=== PATIENT | female | born 1940 | race Asian ===

== ENCOUNTER 2016-03-09 10:36 | Emergency (ER) | payer OTHER, MEDICARE ==
--- NOTE | 2016-03-09 11:06 | EDDOCDS ---
Physician Documentation [facility] Name: Alee Biggs Age: 75 yrs Sex: Female : 1940 Arrival Date: 03/09/2016 Time: 10:36 Bed Triage 2 Private MD: LEI Sam Disposition: 03/09/16 10:59 Discharged to Home/Self Care. Impression: Acute maxillary sinusitis, Cough. - Condition is Stable. - Discharge Instructions: Sinusitis, Adult, Cough, Adult. - Prescriptions for Zithromax Z- Kumar 250 mg Oral Tablet - take 1 tablet by ORAL route as directed for 5 days Day 1- take two tablets once. Day 2, 3, 4 , 5 take one tablet once daily.; 6 tablet. benzonatate 200 mg Oral Capsule - take 1 capsule by ORAL route 3 times per day As needed; 30 capsule. - Work Release Form - 3 day, Medication Reconciliation, Local Pharmacy Hours form. - Follow up: Emergency Department; When: As needed; Reason: Worsening of conditions. Follow up: LEI Sam; When: Call to arrange an appointment; Reason: Wound/Symptom Recheck, Recheck today's complaints, Worsening of conditions, Continuance of care. - Problem is an ongoing problem. - Symptoms are unchanged. - Notes: Follow up with your regular doctor for a recheck of your blood pressure. Historical: - Allergies: no known allergies; - Home Meds: 1. benazepril 40 mg oral tab twice a day (Last dose: 03/09/2016 09:00) 2. multivitamin Oral tab 1 tab daily (Last dose: 03/09/2016 09:00) 3. esomeprazole magnesium 20 mg Oral cpDR once daily (Last dose: 03/09/2016 09:00) 4. Oyster Shell Calcium With D Oral twice a day (Last dose: 03/09/2016 09:00) - PMHx: Hypertension; - PSHx: Hysterectomy; - Social history: Smoking status: Patient states was never smoker of tobacco. No barriers to communication noted, The patient speaks fluent [place], Speaks appropriately for age. - Family history: Not pertinent. - : The pt / caregiver states he / she is not on anticoagulants. Home medication list is obtained from the patient. - Exposure Risk Screening:: None identified. Vital Signs: 03/09 10:39 BP 178 / 91; Pulse 88; Resp 18; Temp 98.2(T); Pulse Ox 99% on R/A; Weight 54.43 kg / dem1 120 lbs; Height 5 ft. 0 in. (152.40 cm); Pain 05/12; 10:39 Body Mass Index 23.44 (54.43 kg, 152.40 cm) dem1 Signatures: Kianna Jimenez RN RN kr3 Seema Navas RN RN dsf London Alexander, PA-C PA-C cc10 MTDD
--- NOTE | 2016-03-09 11:06 | EDDOCDS ---
Nurse's Notes [facility] Name: Alee Biggs Age: 75 yrs Sex: Female : 1940 Arrival Date: 03/09/2016 Time: 10:36 Bed Triage 2 Private MD: LEI Sam Diagnosis: Acute maxillary sinusitis;Cough Presentation: 03/09 10:46 Presenting complaint: Patient states: coughing, sore throat, nasal discharge for the dsf past few days. Adult Sepsis Screening: The patient does not have new or worsening altered mentation. Patient's respiratory rate is less than 22. Systolic blood pressure is greater than 100. Patient has a qSOFA score of 0- Negative Sepsis Screen. Suicide/Homicide risk assessment- the patient denies having any suicidal and/or homicidal ideations and does not present with any other emotional, behavioral or mental health complaints. Status: The patient is a dependent. Transition of care: patient was not received from another setting of care. 10:46 Acuity: CASPER Level 5 dsf 10:46 Method Of Arrival: Walkin/Carried/Asstd dsf Triage Assessment: 10:48 General: Appears in no apparent distress, Behavior is appropriate for age, cooperative. dsf Pain: Location: head and throat Pain currently is 7 out of 10 on a pain scale. Neurological: Level of Consciousness is awake, alert, Reports headache. EENT: Reports pain in throat. Respiratory: Airway is patent Respiratory effort is even, unlabored, Respiratory pattern is regular, symmetrical, Reports cough that is non-productive. Derm: Skin is pink, warm & dry. Historical: - Allergies: no known allergies; - Home Meds: 1. benazepril 40 mg oral tab twice a day (Last dose: 03/09/2016 09:00) 2. multivitamin Oral tab 1 tab daily (Last dose: 03/09/2016 09:00) 3. esomeprazole magnesium 20 mg Oral cpDR once daily (Last dose: 03/09/2016 09:00) 4. Oyster Shell Calcium With D Oral twice a day (Last dose: 03/09/2016 09:00) - PMHx: Hypertension; - PSHx: Hysterectomy; - Social history: Smoking status: Patient states was never smoker of tobacco. No barriers to communication noted, The patient speaks fluent Romansh, Speaks appropriately for age. - Family history: Not pertinent. - : The pt / caregiver states he / she is not on anticoagulants. Home medication list is obtained from the patient. - Exposure Risk Screening:: None identified. Screenin:04 Screening information is obtained from the patient. Fall risk: No risks identified. kr3 Assistance ADL's: requires no assistance with activities of daily living. Abuse/DV Screen: The patient / caregiver reports he/she is: not in a situation that causes fear, pain or injury. Nutritional screening: No deficits noted. Advance Directives: Currently, there is no health care proxy. home support is adequate. Assessment: 11:05 Reassessment: Patient appears in no apparent distress at this time. kr3 Vital Signs: 10:39 BP 178 / 91; Pulse 88; Resp 18; Temp 98.2(T); Pulse Ox 99% on R/A; Weight 54.43 kg; dem1 Height 5 ft. 0 in. (152.40 cm); Pain 3/10; 10:39 Body Mass Index 23.44 (54.43 kg, 152.40 cm) [facility] Vitals: 10:39 Log In Time: March 09, 2016 at 10:37. dem1 ED Course: 10:38 Patient visited by Mukesh Reeves. dem1 10:38 THEA Sam is Private Physician. dem1 10:38 Patient moved to Waiting dem1 10:40 Patient moved to Pre RCE dem1 10:46 Triage Initiated dsf 10:47 London Alexander [facility] cc10 10:47 Reta Pretty MD is Attending Physician. cc10 10:48 Patient moved to Triage 2 dsf 10:53 Patient visited by London Alexander PA-C. cc10 10:53 Patient visited by London Alexander PA-C. cc10 10:59 LEI Sam is Referral Physician. cc10 11:05 The patient / caregiver is instructed regarding the plan of care and ED course. Patient kr3 has correct armband on for positive identification. 11:05 No IV's were initiated during this patient's visit. No procedures done that require kr3 assistance. Order Results: There are currently no results for this order. Outcome: 10:59 Discharge ordered by Provider. cc10 11:05 Discharge Assessment: patient administered narcotics - no. The following High Risk kr3 Discharge criteria are identified: None. Discharged to home ambulatory. Condition: stable. Discharge instructions given to patient, Instructed on discharge instructions, follow up and referral plans. medication usage, Demonstrated understanding of instructions, medications, Pt was receptive of discharge instructions/ teaching. Prescriptions given X 2. No special radiology studies were completed. Property sent home with patient. 11:05 Patient left the ED. kr3 Signatures: Kianna Jimenez RN RN kr3 Seema Navas RN RN dsf Mack, Demeishia dem1 London Alexander PA-C PA-C cc10 MTDD
--- NOTE | 2016-03-11 12:07 | EDDOCDS ---
Nurse's Notes [facility] Name: Alee Biggs Age: 75 yrs Sex: Female : 1940 Arrival Date: 03/09/2016 Time: 10:36 Bed Triage 2 Private MD: LEI Sam Diagnosis: Acute maxillary sinusitis;Cough Presentation: 03/09 10:46 Presenting complaint: Patient states: coughing, sore throat, nasal discharge for the dsf past few days. Adult Sepsis Screening: The patient does not have new or worsening altered mentation. Patient's respiratory rate is less than 22. Systolic blood pressure is greater than 100. Patient has a qSOFA score of 0- Negative Sepsis Screen. Suicide/Homicide risk assessment- the patient denies having any suicidal and/or homicidal ideations and does not present with any other emotional, behavioral or mental health complaints. Status: The patient is a dependent. Transition of care: patient was not received from another setting of care. 10:46 Acuity: CASPER Level 5 dsf 10:46 Method Of Arrival: Walkin/Carried/Asstd dsf Triage Assessment: 10:48 General: Appears in no apparent distress, Behavior is appropriate for age, cooperative. dsf Pain: Location: head and throat Pain currently is 7 out of 10 on a pain scale. Neurological: Level of Consciousness is awake, alert, Reports headache. EENT: Reports pain in throat. Respiratory: Airway is patent Respiratory effort is even, unlabored, Respiratory pattern is regular, symmetrical, Reports cough that is non-productive. Derm: Skin is pink, warm & dry. Historical: - Allergies: no known allergies; - Home Meds: 1. benazepril 40 mg oral tab twice a day (Last dose: 03/09/2016 09:00) 2. multivitamin Oral tab 1 tab daily (Last dose: 03/09/2016 09:00) 3. esomeprazole magnesium 20 mg Oral cpDR once daily (Last dose: 03/09/2016 09:00) 4. Oyster Shell Calcium With D Oral twice a day (Last dose: 03/09/2016 09:00) - PMHx: Hypertension; - PSHx: Hysterectomy; - Social history: Smoking status: Patient states was never smoker of tobacco. No barriers to communication noted, The patient speaks fluent Greenlandic, Speaks appropriately for age. - Family history: Not pertinent. - : The pt / caregiver states he / she is not on anticoagulants. Home medication list is obtained from the patient. - Exposure Risk Screening:: None identified. Screenin:04 Screening information is obtained from the patient. Fall risk: No risks identified. kr3 Assistance ADL's: requires no assistance with activities of daily living. Abuse/DV Screen: The patient / caregiver reports he/she is: not in a situation that causes fear, pain or injury. Nutritional screening: No deficits noted. Advance Directives: Currently, there is no health care proxy. home support is adequate. Assessment: 11:05 Reassessment: Patient appears in no apparent distress at this time. kr3 Vital Signs: 10:39 BP 178 / 91; Pulse 88; Resp 18; Temp 98.2(T); Pulse Ox 99% on R/A; Weight 54.43 kg; dem1 Height 5 ft. 0 in. (152.40 cm); Pain 3/10; 10:39 Body Mass Index 23.44 (54.43 kg, 152.40 cm) [facility] Vitals: 10:39 Log In Time: March 09, 2016 at 10:37. [facility] ED Course: 10:38 Patient visited by Mukesh Reeves. dem1 10:38 Cecy [facility] is Private Physician. dem1 10:38 Patient moved to Waiting dem1 10:40 Patient moved to Pre RCE dem1 10:46 Triage Initiated dsf 10:47 London Alexander PA-C is PHCP. cc10 10:47 Reta Pretty MD is Attending Physician. cc10 10:48 Patient moved to Triage 2 dsf 10:53 Patient visited by London Alexander PA-C. cc10 10:53 Patient visited by London Alexander PA-C. cc10 10:59 LEI Sam is Referral Physician. cc10 11:05 The patient / caregiver is instructed regarding the plan of care and ED course. Patient kr3 has correct armband on for positive identification. 11:05 No IV's were initiated during this patient's visit. No procedures done that require kr3 assistance. 11:11 [facility] Payment Agreement was scanned into [employer] and attached to record. jp5 03/10 07:09 T-Sheet-- Draft Copy was scanned into [employer] and attached to record. gb Order Results: There are currently no results for this order. Outcome: 03/09 10:59 Discharge ordered by Provider. cc10 11:05 Discharge Assessment: patient administered narcotics - no. The following High Risk kr3 Discharge criteria are identified: None. Discharged to home ambulatory. Condition: stable. Discharge instructions given to patient, Instructed on discharge instructions, follow up and referral plans. medication usage, Demonstrated understanding of instructions, medications, Pt was receptive of discharge instructions/ teaching. Prescriptions given X 2. No special radiology studies were completed. Property sent home with patient. 11:05 Patient left the ED. kr3 Signatures: Saskia Camacho, Reg Reg Kianna Vidal,RN RN kr3 Seema Navas,RN RN Mukesh Lopez1 London Alexander PA-C PADaylin cc10 Niya Jackson jp5 Chart Complete MTDHarleen
--- NOTE | 2016-03-11 12:07 | EDDOCDS ---
Physician Documentation [facility] Name: Alee Biggs Age: 75 yrs Sex: Female : 1940 Arrival Date: 03/09/2016 Time: 10:36 Bed Triage 2 Private MD: LEI Sam Disposition: 03/09/16 10:59 Discharged to Home/Self Care. Impression: Acute maxillary sinusitis, Cough. - Condition is Stable. - Discharge Instructions: Sinusitis, Adult, Cough, Adult. - Prescriptions for Zithromax Z- Kumar 250 mg Oral Tablet - take 1 tablet by ORAL route as directed for 5 days Day 1- take two tablets once. Day 2, 3, 4 , 5 take one tablet once daily.; 6 tablet. benzonatate 200 mg Oral Capsule - take 1 capsule by ORAL route 3 times per day As needed; 30 capsule. - Work Release Form - 3 day, Medication Reconciliation, Local Pharmacy Hours form. - Follow up: Emergency Department; When: As needed; Reason: Worsening of conditions. Follow up: LEI Sam; When: Call to arrange an appointment; Reason: Wound/Symptom Recheck, Recheck today's complaints, Worsening of conditions, Continuance of care. - Problem is an ongoing problem. - Symptoms are unchanged. - Notes: Follow up with your regular doctor for a recheck of your blood pressure. Historical: - Allergies: no known allergies; - Home Meds: 1. benazepril 40 mg oral tab twice a day (Last dose: 03/09/2016 09:00) 2. multivitamin Oral tab 1 tab daily (Last dose: 03/09/2016 09:00) 3. esomeprazole magnesium 20 mg Oral cpDR once daily (Last dose: 03/09/2016 09:00) 4. Oyster Shell Calcium With D Oral twice a day (Last dose: 03/09/2016 09:00) - PMHx: Hypertension; - PSHx: Hysterectomy; - Social history: Smoking status: Patient states was never smoker of tobacco. No barriers to communication noted, The patient speaks fluent Arabic, Speaks appropriately for age. - Family history: Not pertinent. - : The pt / caregiver states he / she is not on anticoagulants. Home medication list is obtained from the patient. - Exposure Risk Screening:: None identified. Vital Signs: 03/09 10:39 BP 178 / 91; Pulse 88; Resp 18; Temp 98.2(T); Pulse Ox 99% on R/A; Weight 54.43 kg / dem1 120 lbs; Height 5 ft. 0 in. (152.40 cm); Pain 3/10; 10:39 Body Mass Index 23.44 (54.43 kg, 152.40 cm) dem1 MDM: 11:11 [facility] Payment Agreement was scanned into [employer] and attached to record. jp5 11:11 Financial registration complete. jp5 03/10 07:09 T-Sheet-- Draft Copy was scanned into [employer] and attached to record. gb Signatures: Saskia Camacho, Kianna Cortez,RN RN kr3 Seema Navas RN RN jessief London Alexander, PA-C PA-C cc10 Niya Jackson jp5 The chart was reviewed and I authenticate all verbal orders and agree with the evaluation and treatment provided.Attachments: 03/09 11:11 [facility] Payment Agreement jp5 03/10 07:09 T-Sheet-- Draft Copy gb Chart Complete MTDD
--- NOTE | 2016-03-11 12:07 | EDDOCDS ---
Physician Documentation [facility] Name: Alee Biggs Age: 75 yrs Sex: Female : 1940 Arrival Date: 03/09/2016 Time: 10:36 Bed Triage 2 Private MD: LEI Sam Disposition: 03/09/16 10:59 Discharged to Home/Self Care. Impression: Acute maxillary sinusitis, Cough. - Condition is Stable. - Discharge Instructions: Sinusitis, Adult, Cough, Adult. - Prescriptions for Zithromax Z- Kumar 250 mg Oral Tablet - take 1 tablet by ORAL route as directed for 5 days Day 1- take two tablets once. Day 2, 3, 4 , 5 take one tablet once daily.; 6 tablet. benzonatate 200 mg Oral Capsule - take 1 capsule by ORAL route 3 times per day As needed; 30 capsule. - Work Release Form - 3 day, Medication Reconciliation, Local Pharmacy Hours form. - Follow up: Emergency Department; When: As needed; Reason: Worsening of conditions. Follow up: LEI Sam; When: Call to arrange an appointment; Reason: Wound/Symptom Recheck, Recheck today's complaints, Worsening of conditions, Continuance of care. - Problem is an ongoing problem. - Symptoms are unchanged. - Notes: Follow up with your regular doctor for a recheck of your blood pressure. Historical: - Allergies: no known allergies; - Home Meds: 1. benazepril 40 mg oral tab twice a day (Last dose: 03/09/2016 09:00) 2. multivitamin Oral tab 1 tab daily (Last dose: 03/09/2016 09:00) 3. esomeprazole magnesium 20 mg Oral cpDR once daily (Last dose: 03/09/2016 09:00) 4. Oyster Shell Calcium With D Oral twice a day (Last dose: 03/09/2016 09:00) - PMHx: Hypertension; - PSHx: Hysterectomy; - Social history: Smoking status: Patient states was never smoker of tobacco. No barriers to communication noted, The patient speaks fluent Turkish, Speaks appropriately for age. - Family history: Not pertinent. - : The pt / caregiver states he / she is not on anticoagulants. Home medication list is obtained from the patient. - Exposure Risk Screening:: None identified. Vital Signs: 03/09 10:39 BP 178 / 91; Pulse 88; Resp 18; Temp 98.2(T); Pulse Ox 99% on R/A; Weight 54.43 kg / dem1 120 lbs; Height 5 ft. 0 in. (152.40 cm); Pain 3/10; 10:39 Body Mass Index 23.44 (54.43 kg, 152.40 cm) dem1 MDM: 11:11 [facility] [place] Agreement was scanned into [employer] and attached to record. jp5 11:11 Financial registration complete. jp5 03/10 07:09 T-Sheet-- Draft Copy was scanned into [employer] and attached to record. gb Signatures: Saskia Camacho, Kianna Cortez,RN RN kr3 Seema Navas RN RN jessief London Alexander, PA-C PA-C cc10 Niya Jackson jp5 The chart was reviewed and I authenticate all verbal orders and agree with the evaluation and treatment provided.Attachments: 03/09 11:11 [facility] [place] Agreement jp5 03/10 07:09 T-Sheet-- Draft Copy gb Chart Complete MTDD
== END 2016-03-09 11:05 | disposition home or self-care (01) ==
LOC: M ED 10:36
DX: J01.90 Acute sinusitis, unspecified (principal); R05 Cough; I10 Essential (primary) hypertension; Z90.79 Acquired absence of other genital organ(s); Z79.899 Other long term (current) drug therapy

== ENCOUNTER 2016-11-11 14:59 | Emergency (ER) | payer OTHER, MEDICARE ==
[~2016-11-11] VITALS: Ht 154.9 cm; Wt 54.5 kg
[2016-11-11] MEDS ORDERED: BENA20TA PO (15:30)
[2016-11-11] MEDS ORDERED: HYDR25TA6 (15:30)
[2016-11-11] MEDS ORDERED: MULTTAB4 (15:30)
[2016-11-11] MEDS ORDERED: BIMA01SOL (15:30)
[2016-11-11] MEDS ORDERED: NEXI20CA (15:30)
[2016-11-11] MEDS ORDERED: OYST500T91 (15:30)
[2016-11-11 16:59] LABS: BASO % 0.4 % (0.0-1.0); EOS # 0.1 K/mm3 (0.0-0.50); EOS % 1.4 % (0.0-3.0); LARGE UNSTAINED CELL # 0.1 K/mm3 (0.0-0.4); LARGE UNSTAINED CELL % 2.7 % (0.0-4.0); LYMPH # 0.8 K/mm3 (1.5-4.5); LYMPH % 20.9 % (24.0-44.0); MEAN CORPUSCULAR HEMOGLOBIN 33.2 pg (27.0-33.0); MEAN CORPUSCULAR HGB CONC 33.8 g/dl (32.0-36.5); MEAN CORPUSCULAR VOLUME 98.3 fl (80.0-96.0); MONO # 0.2 K/mm3 (0.0-0.8); MONO % 5.5 % (0.0-5.0); NEUTROPHILS # 2.7 K/mm3 (1.8-7.7); PLATELET COUNT, AUTOMATED 127 k/mm3 (150-450); RED CELL DISTRIBUTION WIDTH 12.7 % (11.5-14.5); WHITE BLOOD COUNT 3.9 K/mm3 (4.0-10.0)
--- NOTE | 2016-11-11 17:16 | REP ---
Clinical: Pain, swelling and erythema. Technique: AP, lateral, bilateral oblique views of the right third digit. 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 Findings include joint space obliteration, subchondral heterogeneity and cystic changes along with marginal osteophytes and soft tissue swelling. No obvious acute fracture. No subcutaneous emphysema. Impression: Advanced osteoarthritic degenerative changes and overlying soft tissue swelling. Signed by Bethel Justice MD 11/11/2016 05:07 P
[2016-11-11 17:17] LABS: CALCIUM LEVEL 9.5 MG/DL (8.8-10.2); CREATININE FOR GFR 1.14 MG/DL (0.55-1.02); GLOMERULAR FILTRATION RATE 49.5 (>39); POTASSIUM SERUM 4.4 MEQ/L (3.5-5.1); URIC ACID 9.3 MG/DL (2.6-6.0)
[2016-11-11 17:24] LABS: ERYTHROCYTE SEDIMENTATION RATE 57 mm/hr (0-30)
[2016-11-11] MEDS ORDERED: INDO25CA PO (17:32)
[2016-11-11] MEDS ORDERED: AUGM875T28 PO (17:32)
[2016-11-11 17:42] VITALS: BP 150/88
== END 2016-11-11 17:43 | disposition home or self-care (01) ==
LOC: M ED 14:59
DX: M02.30 Reiter's disease, unspecified site (principal); M10.9 Gout, unspecified; M54.5 Low back pain; I10 Essential (primary) hypertension; K21.9 Gastro-esophageal reflux disease without esophagitis; Z79.899 Other long term (current) drug therapy

== ENCOUNTER 2017-05-12 13:45 | Emergency (ER) | payer OTHER, MEDICARE ==
[2017-05-12] MEDS: NORCO, ANEXSIA 5/325MG TABLET (HYDROcodone/ACETAMINOPHEN) PO (15:37)
== END 2017-05-12 17:41 | disposition home or self-care (01) ==
LOC: M ED 13:45
DX: S00.33XA Contusion of nose, initial encounter (principal); S20.219A Contusion of unspecified front wall of thorax, initial encounter; S76.011A Strain of muscle, fascia and tendon of right hip, initial encounter; W01.10XA Fall on same level from slipping, tripping and stumbling with subsequent striking against unspecified object, initial encounter; Y92.89 Other specified places as the place of occurrence of the external cause; Y93.9 Activity, unspecified; I10 Essential (primary) hypertension; K21.9 Gastro-esophageal reflux disease without esophagitis; M10.9 Gout, unspecified; K44.9 Diaphragmatic hernia without obstruction or gangrene; Z79.899 Other long term (current) drug therapy
CPT/HCPCS: 71111

== ENCOUNTER → 2017-07-06 | Outpatient (REF) | payer OTHER, MEDICARE ==
[2017-07-06 14:03] LABS: APPEARANCE, URINE HAZY (CLEAR); BACTERIA, URINE AUTO NEGATIVE (NEGATIVE); BILIRUBIN, URINE AUTO NEGATIVE (NEGATIVE); BLOOD, URINE BLOOD NEGATIVE (NEGATIVE); COLOR, URINE YELLOW (YELLOW); GLUCOSE, URINE (UA) AUTO NEGATIVE (NEGATIVE); KETONE, URINE AUTO NEGATIVE (NEGATIVE); LEUKOCYTE ESTERASE, URINE AUTO NEGATIVE (NEGATIVE); NITRITE, URINE AUTO NEGATIVE (NEGATIVE); PROTEIN, URINE AUTO NEGATIVE (NEGATIVE); RBC, URINE AUTO 0 /HPF (0-3); SPECIFIC GRAVITY URINE AUTO 1.014 (1.002-1.035); SQUAMOUS EPITHELIAL CELL UR AU 0 /HPF (0-6); UROBILINOGEN, URINE AUTO 0.2 mg/dL (0.0-2.0); WBC, URINE AUTO 0 /HPF (0-3)
== END ==
LOC: M SMT 13:36
DX: R32 Unspecified urinary incontinence (principal)

== ENCOUNTER 2017-11-23 19:19 | Emergency (ER) | payer MEDICARE, OTHER ==
[2017-11-23] MEDS: hydroCHLOROthiazide 12.5 MG CAPSULE PO ×3 (20:45)
[2017-11-23] MEDS: BENAZEPRIL 20 MG TAB PO ×3 (20:45)
[2017-11-23] MEDS: NAPROXEN 250 MG TAB PO ×3 (20:45)
[2017-11-23 20:58] LABS: HEMATOCRIT 36.7 % (36.0-47.0); HEMOGLOBIN 11.9 g/dl (12.0-15.5); MEAN CORPUSCULAR HEMOGLOBIN 32.2 pg (27.0-33.0); MEAN CORPUSCULAR HGB CONC 32.4 g/dl (32.0-36.5); MEAN CORPUSCULAR VOLUME 99.5 fl (80.0-96.0); PLATELET COUNT, AUTOMATED 117 10^3/uL (150-450); RED BLOOD COUNT 3.69 10^6/uL (4.00-5.40); RED CELL DISTRIBUTION WIDTH 12.9 % (11.5-14.5); WHITE BLOOD COUNT 4.2 10^3/uL (4.0-10.0)
[2017-11-23 21:46] LABS: ANION GAP 7 MEQ/L (8-16); BLOOD UREA NITROGEN 46 MG/DL (7-18); CARBON DIOXIDE LEVEL 28 MEQ/L (21-32); CHLORIDE LEVEL 107 MEQ/L (98-107); CPK CREATINE PHOSPHOKINASE 179 U/L (26-192); CREATININE FOR GFR 1.83 MG/DL (0.55-1.30); GLOMERULAR FILTRATION RATE 28.6 (>39); GLUCOSE, FASTING 94 MG/DL (70-100); MB/CK RELATIVE INDEX 2.51 (< OR =4); SODIUM LEVEL 142 MEQ/L (136-145); TROPONIN I < 0.02 NG/ML (< 0.10)
== END 2017-11-23 22:40 | disposition home or self-care (01) ==
LOC: M ED 19:19
DX: I44.0 Atrioventricular block, first degree (principal); J01.90 Acute sinusitis, unspecified; I10 Essential (primary) hypertension; I51.7 Cardiomegaly; K44.9 Diaphragmatic hernia without obstruction or gangrene; I27.20 Pulmonary hypertension, unspecified; M41.86 Other forms of scoliosis, lumbar region; Z79.899 Other long term (current) drug therapy
CPT/HCPCS: 71046

== ENCOUNTER 2017-12-12 16:17 | Inpatient (IN) | payer OTHER, MEDICARE ==
[2017-12-12] MEDS: ASPIRIN 81 MG CHEW TABLET PO (19:26)
[2017-12-12 19:45] LABS: BASO % 0.4 % (0.0-1.0); EOS % 0.9 % (0.0-3.0); HEMATOCRIT 38.5 % (36.0-47.0); HEMOGLOBIN 12.8 g/dl (12.0-15.5); IMMATURE GRANULOCYTE % 0.2 % (0-3.0); LYMPH # 1.8 10^3/uL (1.5-4.5); LYMPH % 37.8 % (24.0-44.0); MEAN CORPUSCULAR HEMOGLOBIN 32.8 pg (27.0-33.0); MEAN CORPUSCULAR HGB CONC 33.2 g/dl (32.0-36.5); MEAN CORPUSCULAR VOLUME 98.7 fl (80.0-96.0); MONO # 0.5 10^3/uL (0.0-0.8); MONO % 9.8 % (0.0-5.0); NEUTROPHILS # 2.4 10^3/uL (1.8-7.7); NEUTROPHILS % 50.9 % (36.0-66.0); PLATELET COUNT, AUTOMATED 142 10^3/uL (150-450); RED CELL DISTRIBUTION WIDTH 13.3 % (11.5-14.5); WHITE BLOOD COUNT 4.7 10^3/uL (4.0-10.0)
[2017-12-12 19:58] LABS: INR 0.92; PROTHROMBIN TIME 12.4 SECONDS (12.1-14.4)
[2017-12-12 20:32] LABS: ALBUMIN 3.9 GM/DL (3.2-5.2); ALBUMIN/GLOBULIN RATIO 0.93 (1.00-1.93); ALKALINE PHOSPHATASE 68 U/L (45-117); ALT/SGPT 16 U/L (12-78); ANION GAP 9 MEQ/L (8-16); AST/SGOT 41 U/L (7-37); BILIRUBIN,DIRECT 0.2 MG/DL (0.0-0.2); BILIRUBIN,TOTAL 0.8 MG/DL (0.2-1.0); BLOOD UREA NITROGEN 60 MG/DL (7-18); CALCIUM LEVEL 9.4 MG/DL (8.8-10.2); CARBON DIOXIDE LEVEL 27 MEQ/L (21-32); CHLORIDE LEVEL 104 MEQ/L (98-107); CPK CREATINE PHOSPHOKINASE 333 U/L (26-192); CREATININE FOR GFR 2.15 MG/DL (0.55-1.30); FREE T4 1.32 NG/DL (0.76-1.46); GLOMERULAR FILTRATION RATE 23.7 (>39); GLUCOSE, FASTING 92 MG/DL (70-100); LIPASE 320 U/L (73-393); MB/CK RELATIVE INDEX 1.74 (< OR =4); NT-PRO BNP 800 PG/ML (<450); POTASSIUM SERUM 4.2 MEQ/L (3.5-5.1); SODIUM LEVEL 140 MEQ/L (136-145); THYROID STIMULATING HORMONE 0.981 uIU/ML (0.358-3.740); TOTAL PROTEIN 8.1 GM/DL (6.4-8.2); TROPONIN I 0.02 NG/ML (< 0.10)
[2017-12-12] MEDS ORDERED: FLUTICASONE PROP 0.05% NASAL SPRAY 16 GM (FLONASE) (23:45)
[2017-12-13] MEDS: NS 1,000 ML IV ×3 (00:12→19:49)
[2017-12-13] MEDS: APIXABAN 2.5 MG TAB (ELIQUIS) PO ×3 (01:16→20:55)
[2017-12-13 02:04] LABS: TROPONIN I < 0.02 NG/ML (< 0.10)
[2017-12-13 06:26] LABS: HEMATOCRIT 31.6 % (36.0-47.0); MEAN CORPUSCULAR HEMOGLOBIN 32.6 pg (27.0-33.0); MEAN CORPUSCULAR HGB CONC 33.5 g/dl (32.0-36.5); MEAN CORPUSCULAR VOLUME 97.2 fl (80.0-96.0); PLATELET COUNT, AUTOMATED 119 10^3/uL (150-450); RED BLOOD COUNT 3.25 10^6/uL (4.00-5.40); RED CELL DISTRIBUTION WIDTH 13.1 % (11.5-14.5); WHITE BLOOD COUNT 3.3 10^3/uL (4.0-10.0)
[2017-12-13 06:44] LABS: ANION GAP 8 MEQ/L (8-16); BLOOD UREA NITROGEN 54 MG/DL (7-18); CALCIUM LEVEL 8.5 MG/DL (8.8-10.2); CARBON DIOXIDE LEVEL 26 MEQ/L (21-32); CHLORIDE LEVEL 109 MEQ/L (98-107); CREATININE FOR GFR 1.74 MG/DL (0.55-1.30); GLOMERULAR FILTRATION RATE 30.3 (>39); GLUCOSE, FASTING 82 MG/DL (70-100); SODIUM LEVEL 143 MEQ/L (136-145)
[2017-12-13 06:56] LABS: HEMOGLOBIN 10.6 g/dl (12.0-15.5)
[2017-12-13] MEDS: amLODIPine 5 MG TAB PO (09:50)
[2017-12-13] MEDS: PANTOPRAZOLE 40MG TAB (PROTONIX) PO (09:50)
[2017-12-13] MEDS: DEXTRAN/HYPROMELLOSE OPHTH SOLN 15 ML(GENTEAL TEARS) OU ×2 (17:09→20:55)
[2017-12-13] MEDS: LATANOPROST 0.005% OPHTH SOLN 2.5 ML OU (20:55)
[2017-12-14 05:59] LABS: HEMATOCRIT 31.3 % (36.0-47.0); HEMOGLOBIN 10.4 g/dl (12.0-15.5); MEAN CORPUSCULAR HEMOGLOBIN 32.7 pg (27.0-33.0); MEAN CORPUSCULAR HGB CONC 33.2 g/dl (32.0-36.5); MEAN CORPUSCULAR VOLUME 98.4 fl (80.0-96.0); PLATELET COUNT, AUTOMATED 114 10^3/uL (150-450); RED BLOOD COUNT 3.18 10^6/uL (4.00-5.40); RED CELL DISTRIBUTION WIDTH 13.1 % (11.5-14.5); WHITE BLOOD COUNT 3.3 10^3/uL (4.0-10.0)
[2017-12-14] MEDS: NS 1,000 ML IV (06:10)
[2017-12-14 06:25] LABS: ANION GAP 7 MEQ/L (8-16); BLOOD UREA NITROGEN 48 MG/DL (7-18); CARBON DIOXIDE LEVEL 26 MEQ/L (21-32); CHLORIDE LEVEL 112 MEQ/L (98-107); CREATININE FOR GFR 1.35 MG/DL (0.55-1.30); GLOMERULAR FILTRATION RATE 40.6 (>39); GLUCOSE, FASTING 87 MG/DL (70-100); POTASSIUM SERUM 4.1 MEQ/L (3.5-5.1); SODIUM LEVEL 145 MEQ/L (136-145)
[2017-12-14] MEDS: BENAZEPRIL 20 MG TAB PO (09:00)
[2017-12-14] MEDS: PANTOPRAZOLE 40MG TAB (PROTONIX) PO (09:01)
[2017-12-14] MEDS: APIXABAN 2.5 MG TAB (ELIQUIS) PO (09:01)
[2017-12-14] MEDS: DEXTRAN/HYPROMELLOSE OPHTH SOLN 15 ML(GENTEAL TEARS) OU ×3 (09:02→20:21)
[2017-12-14] MEDS: amLODIPine 5 MG TAB PO (09:02)
[2017-12-14 11:29] LABS: PROTHROMBIN TIME 13.3 SECONDS (12.1-14.4)
[2017-12-14] MEDS: ENOXAPARIN 100MG/1ML SYRINGE (J1650) SC (11:58)
[2017-12-14] MEDS ORDERED: PILL CRUSHER/CUTTER 1 EACH XX (12:30)
[2017-12-14] MEDS: SLF 3 ML SYR IV ×2 (13:32→20:23)
[2017-12-14] MEDS: WARFARIN SOD 5 MG TAB PO (16:23)
[2017-12-14] MEDS: LATANOPROST 0.005% OPHTH SOLN 2.5 ML OU (20:20)
[2017-12-15 05:28] LABS: INR 1.04; PROTHROMBIN TIME 13.7 SECONDS (12.1-14.4)
[2017-12-15] MEDS: SLF 3 ML SYR IV ×3 (06:00→21:31)
[2017-12-15 08:58] LABS: ANION GAP 8 MEQ/L (8-16); BLOOD UREA NITROGEN 39 MG/DL (7-18); CALCIUM LEVEL 8.7 MG/DL (8.8-10.2); CARBON DIOXIDE LEVEL 27 MEQ/L (21-32); CHLORIDE LEVEL 110 MEQ/L (98-107); CREATININE FOR GFR 1.26 MG/DL (0.55-1.30); GLUCOSE, FASTING 170 MG/DL (70-100); MAGNESIUM LEVEL 1.6 MG/DL (1.8-2.4); POTASSIUM SERUM 4.1 MEQ/L (3.5-5.1); SODIUM LEVEL 145 MEQ/L (136-145)
[2017-12-15] MEDS: amLODIPine 5 MG TAB PO ×2 (09:35→21:31)
[2017-12-15] MEDS: BENAZEPRIL 20 MG TAB PO (09:35)
[2017-12-15] MEDS: DEXTRAN/HYPROMELLOSE OPHTH SOLN 15 ML(GENTEAL TEARS) OU ×3 (09:35→21:31)
[2017-12-15] MEDS: PANTOPRAZOLE 20 MG TAB PO (11:17)
[2017-12-15] MEDS: ENOXAPARIN 100MG/1ML SYRINGE (J1650) SC (11:18)
[2017-12-15] MEDS: MAG SULF 1GM/100ML (MAG RUN) 1 GM in APPROPRIATE DILUENT 1 EA IV ×2 (16:23→17:21)
[2017-12-15] MEDS: WARFARIN SOD 7.5 MG TAB PO (17:21)
[2017-12-15] MEDS: LATANOPROST 0.005% OPHTH SOLN 2.5 ML OU (21:31)
[2017-12-16] MEDS: SLF 3 ML SYR IV ×4 (06:00→21:18)
[2017-12-16 06:06] LABS: INR 1.59; PROTHROMBIN TIME 19.2 SECONDS (12.1-14.4)
[2017-12-16 06:24] LABS: ANION GAP 5 MEQ/L (8-16); BLOOD UREA NITROGEN 33 MG/DL (7-18); CALCIUM LEVEL 7.9 MG/DL (8.8-10.2); CARBON DIOXIDE LEVEL 29 MEQ/L (21-32); CHLORIDE LEVEL 108 MEQ/L (98-107); CREATININE FOR GFR 1.06 MG/DL (0.55-1.30); GLOMERULAR FILTRATION RATE 53.7 (>39); GLUCOSE, FASTING 89 MG/DL (70-100); POTASSIUM SERUM 3.9 MEQ/L (3.5-5.1); SODIUM LEVEL 142 MEQ/L (136-145)
[2017-12-16] MEDS: BENAZEPRIL 20 MG TAB PO (08:43)
[2017-12-16] MEDS: amLODIPine 5 MG TAB PO ×2 (08:48→20:24)
[2017-12-16] MEDS: PANTOPRAZOLE 20 MG TAB PO (08:48)
[2017-12-16] MEDS: DEXTRAN/HYPROMELLOSE OPHTH SOLN 15 ML(GENTEAL TEARS) OU ×3 (08:52→20:24)
[2017-12-16 10:12] LABS: BASO % 0.5 % (0.0-1.0); EOS % 0.8 % (0.0-3.0); HEMATOCRIT 34.6 % (36.0-47.0); HEMOGLOBIN 11.5 g/dl (12.0-15.5); IMMATURE GRANULOCYTE % 0.3 % (0-3.0); LYMPH % 24.9 % (24.0-44.0); MEAN CORPUSCULAR HEMOGLOBIN 33.1 pg (27.0-33.0); MEAN CORPUSCULAR HGB CONC 33.2 g/dl (32.0-36.5); MEAN CORPUSCULAR VOLUME 99.7 fl (80.0-96.0); MONO # 0.6 10^3/uL (0.0-0.8); MONO % 14.4 % (0.0-5.0); NEUTROPHILS # 2.3 10^3/uL (1.8-7.7); NEUTROPHILS % 59.1 % (36.0-66.0); PLATELET COUNT, AUTOMATED 117 10^3/uL (150-450); RED BLOOD COUNT 3.47 10^6/uL (4.00-5.40); RED CELL DISTRIBUTION WIDTH 13.1 % (11.5-14.5); WHITE BLOOD COUNT 3.8 10^3/uL (4.0-10.0)
[2017-12-16] MEDS: SODIUM CHLORIDE NASAL 0.65% SPRAY BTL (OCEAN) ×3 (11:29→20:24)
[2017-12-16] MEDS: MOM 30ML SUSPENSION UDC PO (11:29)
[2017-12-16] MEDS: ENOXAPARIN 100MG/1ML SYRINGE (J1650) SC (11:30)
[2017-12-16] MEDS: SENOKOT S TAB PO (11:31)
[2017-12-16] MEDS: WARFARIN SOD 3 MG TAB PO (17:41)
[2017-12-16] MEDS: LATANOPROST 0.005% OPHTH SOLN 2.5 ML OU (20:25)
[2017-12-17 05:10] LABS: BASO % 0.5 % (0.0-1.0); EOS # 0.1 10^3/uL (0.0-0.50); HEMATOCRIT 33.2 % (36.0-47.0); IMMATURE GRANULOCYTE % 0.3 % (0-3.0); LYMPH % 25.8 % (24.0-44.0); MEAN CORPUSCULAR HEMOGLOBIN 32.8 pg (27.0-33.0); MEAN CORPUSCULAR HGB CONC 33.1 g/dl (32.0-36.5); MEAN CORPUSCULAR VOLUME 99.1 fl (80.0-96.0); MONO # 0.5 10^3/uL (0.0-0.8); MONO % 11.6 % (0.0-5.0); NEUTROPHILS # 2.4 10^3/uL (1.8-7.7); NEUTROPHILS % 59.8 % (36.0-66.0); PLATELET COUNT, AUTOMATED 117 10^3/uL (150-450); RED BLOOD COUNT 3.35 10^6/uL (4.00-5.40); RED CELL DISTRIBUTION WIDTH 13.1 % (11.5-14.5)
[2017-12-17 05:20] LABS: INR 2.41; PROTHROMBIN TIME 26.7 SECONDS (12.1-14.4)
[2017-12-17 05:26] LABS: ANION GAP 5 MEQ/L (8-16); BLOOD UREA NITROGEN 38 MG/DL (7-18); CALCIUM LEVEL 8.1 MG/DL (8.8-10.2); CARBON DIOXIDE LEVEL 30 MEQ/L (21-32); CHLORIDE LEVEL 109 MEQ/L (98-107); CREATININE FOR GFR 1.11 MG/DL (0.55-1.30); GLOMERULAR FILTRATION RATE 50.9 (>39); GLUCOSE, FASTING 91 MG/DL (70-100); MAGNESIUM LEVEL 2.1 MG/DL (1.8-2.4); SODIUM LEVEL 144 MEQ/L (136-145)
[2017-12-17] MEDS: SLF 3 ML SYR IV ×2 (06:00→14:00)
[2017-12-17] MEDS: DEXTRAN/HYPROMELLOSE OPHTH SOLN 15 ML(GENTEAL TEARS) OU ×2 (10:07→16:00)
[2017-12-17] MEDS: PANTOPRAZOLE 20 MG TAB PO (10:08)
[2017-12-17] MEDS: SODIUM CHLORIDE NASAL 0.65% SPRAY BTL (OCEAN) ×2 (10:08→16:00)
[2017-12-17] MEDS: amLODIPine 5 MG TAB PO (10:08)
[2017-12-17] MEDS: BENAZEPRIL 20 MG TAB PO (10:08)
[2017-12-17] MEDS: ENOXAPARIN 100MG/1ML SYRINGE (J1650) SC (11:41)
[2017-12-17] MEDS: WARFARIN SOD 3 MG TAB PO (16:59)
== END 2017-12-17 17:48 | disposition home or self-care (01) | DRG 309 ==
LOC: M ED 16:17 → M ED INP 22:19 → M PCU 23:52
DX: I48.92 Unspecified atrial flutter (principal); N17.9 Acute kidney failure, unspecified; R55 Syncope and collapse; I12.9 Hypertensive chronic kidney disease with stage 1 through stage 4 chronic kidney disease, or unspecified chronic kidney disease; K21.9 Gastro-esophageal reflux disease without esophagitis; E86.0 Dehydration; I49.5 Sick sinus syndrome; I35.0 Nonrheumatic aortic (valve) stenosis; K44.9 Diaphragmatic hernia without obstruction or gangrene; M10.9 Gout, unspecified; N18.3 Chronic kidney disease, stage 3 (moderate); Z79.899 Other long term (current) drug therapy; Z79.1 Long term (current) use of non-steroidal anti-inflammatories (NSAID)

== ENCOUNTER → 2017-12-19 | Outpatient (CLI) | payer OTHER, MEDICARE ==
[2017-12-19 15:18] LABS: INR 3.93; PROTHROMBIN TIME 39.4 SECONDS (12.1-14.4)
== END ==
LOC: M LAB 13:46
DX: Z51.81 Encounter for therapeutic drug level monitoring (principal); Z79.01 Long term (current) use of anticoagulants
CPT/HCPCS: 85610

== ENCOUNTER → 2017-12-19 | Outpatient (CLI) | payer MEDICARE, OTHER ==
[2017-12-19 15:30] LABS: HEMATOCRIT 36.2 % (36.0-47.0); HEMOGLOBIN 11.7 g/dl (12.0-15.5); MEAN CORPUSCULAR HEMOGLOBIN 32.7 pg (27.0-33.0); MEAN CORPUSCULAR HGB CONC 32.3 g/dl (32.0-36.5); MEAN CORPUSCULAR VOLUME 101.1 fl (80.0-96.0); PLATELET COUNT, AUTOMATED 149 10^3/uL (150-450); RED BLOOD COUNT 3.58 10^6/uL (4.00-5.40); RED CELL DISTRIBUTION WIDTH 12.9 % (11.5-14.5); WHITE BLOOD COUNT 4.2 10^3/uL (4.0-10.0)
[2017-12-19 16:03] LABS: ANION GAP 3 MEQ/L (8-16); BLOOD UREA NITROGEN 52 MG/DL (7-18); CALCIUM LEVEL 8.6 MG/DL (8.8-10.2); CARBON DIOXIDE LEVEL 32 MEQ/L (21-32); CHLORIDE LEVEL 108 MEQ/L (98-107); CREATININE FOR GFR 1.45 MG/DL (0.55-1.30); GLOMERULAR FILTRATION RATE 37.4 (>39); GLUCOSE, FASTING 110 MG/DL (70-100); POTASSIUM SERUM 4.4 MEQ/L (3.5-5.1); SODIUM LEVEL 143 MEQ/L (136-145)
== END ==
LOC: M LAB 15:00
DX: I65.23 Occlusion and stenosis of bilateral carotid arteries (principal)
CPT/HCPCS: 80048

== ENCOUNTER → 2017-12-28 | Outpatient (CLI) | payer MEDICARE, OTHER ==
[~2017-12-28] MED LIST: ISOVUE-370 76% 100ML VIAL (Q9967) As Ordered
== END ==
LOC: M RAD 13:56
DX: I65.23 Occlusion and stenosis of bilateral carotid arteries (principal); I67.2 Cerebral atherosclerosis; I67.1 Cerebral aneurysm, nonruptured
CPT/HCPCS: Q9967

== ENCOUNTER 2018-02-14 10:42 | Emergency (ER) | payer OTHER, MEDICARE | END 2018-02-14 11:41 | disposition home or self-care (01) | LOC: M ED 10:42 | DX: J01.90 Acute sinusitis, unspecified (principal); M41.9 Scoliosis, unspecified; R07.9 Chest pain, unspecified; N18.6 End stage renal disease; M54.9 Dorsalgia, unspecified; K44.9 Diaphragmatic hernia without obstruction or gangrene; K31.89 Other diseases of stomach and duodenum; I51.7 Cardiomegaly; Z79.899 Other long term (current) drug therapy | CPT/HCPCS: 71046 ==

== ENCOUNTER 2018-09-09 16:51 | Emergency (ER) | payer MEDICARE, OTHER ==
[~2018-09-09] VITALS: Ht 165.1 cm; Wt 94.5 kg
[~2018-09-09 16:51] MED LIST changes: +ALLO100T PO; +AMLO5TAB6 PO; +AMOX500C PO; +AUGM875T28 PO; +BENA20TA PO; +BIMA01SOL OU; +COUM1TAB19 PO; +FLON1SPR NARES; +FLUTISP; +HYDR-3715 PO; +HYDR25TA6; +HYDR25TAB PO; +INDO25CA PO; -ISOVUE-370 76% 100ML VIAL (Q9967) As Ordered; +MULTTAB4; +NAPR-837 PO; +NAPR-885 PO; +NEXI20CA PO; +OYST500T91 PO; +REFR0.5D8 OU
[2018-09-09] MEDS ORDERED: OMEP-218 PO (17:15)
[2018-09-09] MEDS ORDERED: HYDR25TAB PO (17:15)
[2018-09-09 17:34] LABS: BASO % 0.4 % (0.0-1.0); EOS # 0.1 10^3/uL (0.0-0.50); EOS % 1.3 % (0.0-3.0); HEMATOCRIT 38.2 % (36.0-47.0); HEMOGLOBIN 12.6 g/dl (12.0-15.5); LYMPH # 1.3 10^3/uL (1.5-4.5); LYMPH % 29.2 % (24.0-44.0); MEAN CORPUSCULAR HEMOGLOBIN 31.7 pg (27.0-33.0); MONO # 0.6 10^3/uL (0.0-0.8); MONO % 12.4 % (0.0-5.0); NEUTROPHILS # 2.6 10^3/uL (1.8-7.7); NEUTROPHILS % 56.7 % (36.0-66.0); PLATELET COUNT, AUTOMATED 153 10^3/uL (150-450); RED BLOOD COUNT 3.98 10^6/uL (4.00-5.40); WHITE BLOOD COUNT 4.5 10^3/uL (4.0-10.0)
[2018-09-09 17:48] LABS: INR 1.05; PROTHROMBIN TIME 13.4 SECONDS (11.8-14.0)
[2018-09-09] MEDS ORDERED: LABETALOL HCL 100 MG/20 ML VIAL IV STA (18:04)
[2018-09-09 18:11] LABS: ALBUMIN 3.1 GM/DL (3.2-5.2); ALT/SGPT 15 U/L (12-78); BILIRUBIN,TOTAL 1.2 MG/DL (0.2-1.0); BLOOD UREA NITROGEN 30 MG/DL (7-18); CARBON DIOXIDE LEVEL 27 MEQ/L (21-32); CHLORIDE LEVEL 102 MEQ/L (98-107); CK-MB VALUE MASS 1.5 NG/ML (<3.6); CPK CREATINE PHOSPHOKINASE 70 U/L (26-192); CREATININE FOR GFR 0.95 MG/DL (0.55-1.30); GLOMERULAR FILTRATION RATE > 60.0 (>39); GLUCOSE, FASTING 100 MG/DL (70-100); LIPASE 160 U/L (73-393); MB/CK RELATIVE INDEX 2.14 (< OR =4); POTASSIUM SERUM 3.6 MEQ/L (3.5-5.1); SODIUM LEVEL 139 MEQ/L (136-145); TOTAL PROTEIN 7.4 GM/DL (6.4-8.2); TROPONIN I < 0.02 NG/ML (< 0.10); URIC ACID 7.2 MG/DL (2.6-6.0)
[2018-09-09] MEDS ORDERED: hydroCHLOROthiazide 25 MG TAB PO ONE (18:15)
[2018-09-09] MEDS ORDERED: COLC1TAB13 PO ×2 (18:30→18:56)
--- NOTE | 2018-09-09 18:30 | REPVR ---
EXAM: CT Head Without Contrast EXAM DATE/TIME: 09/09/2018 6:04 PM CLINICAL HISTORY: 77 years old, female; Other: HTN emergency; Additional info: HTN emergency / R/O bleed TECHNIQUE: Imaging protocol: Axial computed tomography images of the head without contrast. Radiation optimization: All CT scans at this facility use at least one of these dose optimization techniques: automated exposure control; mA and/or kV adjustment per patient size (includes targeted exams where dose is matched to clinical indication); or iterative reconstruction. Other technique: STROKE PROTOCOL was implemented. COMPARISON: SC CT ANGIO HEAD 12/28/2017 2:28 PM FINDINGS: Brain: There is white matter lucency indicating chronic microvascular disease. There are old basal ganglia lacunar infarcts. There is no acute infarct. There is no hemorrhage or extra-axial collection. There is no mass. There is no cerebral edema. Ventricles: Normal. No ventriculomegaly. Bones/joints: Unremarkable. No acute fracture. Sinuses: Visualized sinuses are unremarkable. No fluid levels. Mastoid air cells: Visualized mastoid air cells are well aerated. No mastoid effusion. Soft tissues: Unremarkable. Vasculature: There are extensive carotid and vertebral artery calcifications. Other findings: Probable partially empty sella unchanged from prior scan. 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 No acute lesion or injury. No change from prior scan. ASSESSMENT: ASPECTS ([place] Stroke Program Early CT Score) is 10 Electronically signed by: Swapnil De Oliveira On 09/09/2018 18:29:52 PM
[2018-09-09] MEDS ORDERED: COLCHICINE 0.6 MG TAB PO ONE (19:00)
[2018-09-09] MEDS ORDERED: NORV5TAB PO (19:06)
[2018-09-09] MEDS ORDERED: LOSA50TA88 PO (19:06)
[2018-09-09] MEDS ORDERED: LOSARTAN 50 MG TAB PO ONE (19:15)
[2018-09-09] MEDS ORDERED: amLODIPine 5 MG TAB PO ONE (19:15)
[2018-09-09] MEDS ORDERED: cloNIDine 0.2 MG TAB PO ONE (21:45)
[2018-09-09 21:49] VITALS: BP 187/89
[2018-09-09 23:24] VITALS: BP 107/60
--- NOTE | 2018-09-09 23:53 | ECGEPIP ---
[facility] - ED Test Date: 2018-09-09 Pat Name: GLADYS LUIS Department: Room: - Gender: Female [employer]: CEZAR : 1940 Requested By: ISABEL Pepper Order Number: [id number] Reading MD: Yury Hardy Measurements Intervals [place] Rate: 73 P: ME: -1 QRS: 10 QRSD: 92 T: 71 QT: 421 QTc: 466 Interpretive Statements ATRIAL FIBRILLATION WITH ABERRANT CONDUCTION OR VENTRICULAR PREMATURE COMPLEXES Nonspecific ST-T wave abnormalities Similar to tracing done 12-12-17 Electronically Signed on 09-09-2018 23:53:04 EDT by Yury Hardy
--- NOTE | 2018-09-10 07:10 | REP ---
LEFT WRIST, FOUR VIEWS: Four views left wrist performed. No acute fracture is seen. There is disassociation of the scaphoid and lunate compatible with a scapholunate ligament tear. There is moderate narrowing of the radiocarpal joint with subchondral sclerosis. There are no erosive changes of gout. IMPRESSION: No acute fracture. 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 Degenerative changes as above. No erosive changes compatible with gout. Electronically Signed by Jonah Sands MD 09/11/2018 09:40 A
--- NOTE | 2018-09-10 07:11 | REP ---
CHEST, TWO VIEWS: Two views of the chest are performed and compared to prior study of 02/14/2018. Cardiomegaly is again noted. There is a large hiatal hernia. No new infiltrate is seen. Mediastinal silhouette is unchanged. Multiple sternal wires and a prosthetic heart valve are noted and are new since the prior study. IMPRESSION: Cardiomegaly. No acute infiltrate. New prosthetic heart valve. Electronically Signed by Jonah Sands MD 09/11/2018 09:40 A
== END 2018-09-09 23:34 | disposition home or self-care (01) ==
LOC: M ED 16:51 → EDBD 16:51 → M ED 23:34
DX: M10.032 Idiopathic gout, left wrist (principal); I10 Essential (primary) hypertension; I48.91 Unspecified atrial fibrillation; Z78.0 Asymptomatic menopausal state; Z79.899 Other long term (current) drug therapy; Z95.5 Presence of coronary angioplasty implant and graft

== ENCOUNTER 2018-12-23 17:49 | Inpatient (IN) | payer MEDICARE, OTHER ==
[~2018-12-23] VITALS: Ht 154.9 cm; Wt 56.0 kg
[~2018-12-23 17:49] MED LIST changes: +COLC1TAB13 PO; +INDO-16 PO; -INDO25CA PO; +LOSA50TA88 PO; +NORV5TAB PO; +OMEP-218 PO
[2018-12-23] MEDS ORDERED: VANI1CRE5 EX (18:26)
[2018-12-23] MEDS ORDERED: [UNRECOGNIZED DRUG - CODE] PO (18:26)
[2018-12-23] MEDS ORDERED: NEXI20CA PO (18:26)
[2018-12-23] MEDS ORDERED: METO1TAB87 PO ×2 (18:26→22:21)
[2018-12-23] MEDS ORDERED: ASPI81TA85 PO (18:26)
[2018-12-23] MEDS ORDERED: ACET1TAB55 PO (18:26)
[2018-12-23] MEDS ORDERED: BENA20TA PO (18:26)
[2018-12-23] MEDS ORDERED: KEFL500C17 PO (18:26)
[2018-12-23] MEDS ORDERED: TRIA1CR80 TOP (18:26)
[2018-12-23] MEDS ORDERED: IBUP-1022 PO (18:26)
[2018-12-23] MEDS ORDERED: NS 1,000 ML IV SCH (19:34)
[2018-12-23] MEDS ORDERED: METOPROLOL TART 25 MG TABLET PO ONE (19:45)
[2018-12-23] MEDS ORDERED: cefTRIAXone SOD 1 GM in D5W MINI-BAG PLUS 50 ML IV ONE (19:45)
[2018-12-23] MEDS ORDERED: ASPIRIN 81 MG CHEW TABLET PO ONE (19:45)
[2018-12-23] MEDS ORDERED: GI COCKTAIL 50ML BTL(HYOSCYAMINE/MAALOX/LIDOCAINE VISCOUS)(1:3:1) PO ONE (19:45)
[2018-12-23 20:08] LABS: BASO % 0.7 % (0.0-1.0); EOS # 0.1 10^3/uL (0.0-0.5); EOS % 1.4 % (0.0-3.0); HEMATOCRIT 41.7 % (36.0-47.0); HEMOGLOBIN 13.4 g/dl (12.0-15.5); LYMPH # 1.4 10^3/uL (1.5-5.0); LYMPH % 31.8 % (24.0-44.0); MEAN CORPUSCULAR HEMOGLOBIN 31.9 pg (27.0-33.0); MEAN CORPUSCULAR HGB CONC 32.1 g/dl (32.0-36.5); MEAN CORPUSCULAR VOLUME 99.3 fl (80.0-96.0); MONO # 0.5 10^3/uL (0.0-0.8); MONO % 11.6 % (0.0-5.0); NEUTROPHILS # 2.3 10^3/uL (1.5-8.5); NEUTROPHILS % 54.3 % (36.0-66.0); PLATELET COUNT, AUTOMATED 143 10^3/uL (150-450); WHITE BLOOD COUNT 4.2 10^3/uL (4.0-10.0)
[2018-12-23 20:18] LABS: INR 1.06; PROTHROMBIN TIME 13.5 SECONDS (11.8-14.0)
[2018-12-23 20:34] LABS: ALBUMIN 3.4 GM/DL (3.2-5.2); BILIRUBIN,DIRECT 0.2 MG/DL (0.0-0.2); BILIRUBIN,TOTAL 0.7 MG/DL (0.2-1.0); CALCIUM LEVEL 9.4 MG/DL (8.8-10.2); CK-MB VALUE MASS 2.8 NG/ML (<3.6); CREATININE FOR GFR 1.39 MG/DL (0.55-1.30); GLOMERULAR FILTRATION RATE 39.1 (>39); MB/CK RELATIVE INDEX 2.37 (< OR =4); POTASSIUM SERUM 3.7 MEQ/L (3.5-5.1); TROPONIN I 0.05 NG/ML (< 0.10)
[2018-12-23] MEDS ORDERED: ISOVUE-370 76% 100ML VIAL (Q9967) As Ordered ONE (20:38)
[2018-12-23] MEDS ORDERED: LABETALOL HCL 100 MG/20 ML VIAL IV STA ×2 (21:28→22:55)
--- NOTE | 2018-12-23 21:30 | REPVR ---
PROCEDURE INFORMATION: Exam: CT Angiography Chest With Contrast Exam date and time: 12/23/2018 8:57 PM Clinical history: 78 years old, female; Shortness of breath; Additional info: R/O pe TECHNIQUE: Imaging protocol: Computed tomographic angiography of the chest with intravenous contrast. 3D rendering: MIP reconstructed images were created and reviewed. Radiation optimization: All CT scans at this facility use at least one of these dose optimization techniques: automated exposure control; mA and/or kV adjustment per patient size (includes targeted exams where dose is matched to clinical indication); or iterative reconstruction. Contrast material: ISOVUE 370; Contrast volume: 75 ml; Contrast route: IV; COMPARISON: CR Chest, 2 view PA, Lat 09/09/2018 6:10 PM FINDINGS: Pulmonary arteries: The central pulmonary arteries are dilated. No central pulmonary embolism is seen. The subsegmental arteries in the left lower lobe are not well opacified, but it is unclear if this is secondary to inadequate contrast opacification. Pulmonary embolism in the left lower lobe cannot be excluded. No other pulmonary embolism is seen. Aorta: Unremarkable. No aortic aneurysm. No aortic dissection. Lungs: Mild hypoventilatory changes in the lungs. No airspace consolidation or masses. Pleural space: Unremarkable. No pneumothorax. No pleural effusion. Heart: The heart is enlarged. Advanced coronary artery atherosclerotic disease is present. Prior aortic valve replacement. Mediastinum: There is a large hiatal hernia. Lymph nodes: Unremarkable. No enlarged lymph nodes. Bones/joints: Prior sternotomy. Skeletal degenerative changes are noted. Soft tissues: Unremarkable. IMPRESSION: 1. Segmental pulmonary arteries in the left lower lobe are not well contrast opacified, but it is unclear if this is due to lower lobe pulmonary embolism versus artifact related to inadequate contrast opacification. Left lower lobe pulmonary embolism cannot be excluded. No other pulmonary embolism is seen. 2. Pulmonary artery enlargement suggesting pulmonary hypertension. 3. Cardiomegaly. 4. Coronary artery disease. 5. Large hiatal hernia. Electronically signed by: Jonathon Jon On 12/23/2018 21:29:50 PM
--- NOTE | 2018-12-23 21:31 | REPVR ---
PROCEDURE INFORMATION: Exam: US Duplex Left Lower Extremity Veins, Limited Exam date and time: 12/23/2018 8:53 PM Clinical history: 78 years old, female; Edema, localized; Lower extremity, left; Additional info: Swelling TECHNIQUE: Imaging protocol: Real-time Duplex ultrasound of the Left Lower Extremity with 2-D baron scale, color Doppler flow and spectral waveform analysis with image documentation. Limited exam focused on the left lower extremity veins. COMPARISON: No relevant prior studies available. FINDINGS: Left deep veins: Unremarkable. The common femoral, femoral, proximal profunda femoral and popliteal veins are patent without thrombus. Normal Doppler waveforms. Normal compressibility and/or augmentation response. Left superficial veins: Unremarkable. Saphenofemoral junction is patent without thrombus. Soft tissues: Unremarkable. IMPRESSION: No acute findings. No evidence of deep vein thrombosis. Electronically signed by: Jonathon Jon On 12/23/2018 21:31:08 PM
[2018-12-23] MEDS ORDERED: OMEP-218 PO (22:20)
[2018-12-23] MEDS ORDERED: ASPI-161 PO (22:20)
[2018-12-23] MEDS ORDERED: HYDR25TAB PO (22:23)
[2018-12-24] VITALS (7 sets, daily range): BP systolic 140–166; BP diastolic 78–90
[2018-12-24] MEDS ORDERED: ACETAMINOPHEN TAB 650MG DOSE (2X325MG) PO PRN (00:30)
[2018-12-24] MEDS ORDERED: POLYVINYL ALCOHOL OPHTH SOLN 15 ML(LIQUITEARS) OU PRN (01:00)
[2018-12-24] MEDS ORDERED: SLF 3 ML SYR IV PRN (03:00)
[2018-12-24] MEDS: LATANOPROST 0.005% OPHTH SOLN 2.5 ML OU SCH ×2 (03:15→21:15)
[2018-12-24] MEDS: HEPARIN SOD (PORCINE) 5000 UNITS/ML VIAL SC SCH ×3 (05:23→21:15)
[2018-12-24] MEDS: SLF 3 ML SYR IV SCH ×3 (05:33→21:16)
[2018-12-24] MEDS: ASPIRIN 81 MG ENTERIC TAB PO SCH (09:30)
[2018-12-24] MEDS: OMEPRAZOLE 20 MG CAP PO SCH (09:31)
[2018-12-24] MEDS: METOPROLOL TART 25 MG TABLET PO SCH ×2 (09:31→21:00)
[2018-12-24] MEDS: hydroCHLOROthiazide 25 MG TAB PO SCH (09:31)
--- NOTE | 2018-12-24 10:08 | ECGEPIP ---
[facility] - ED Test Date: 2018-12-23 Pat Name: GLADYS LUIS Department: Room: X1805-49 Gender: Female Creative Art Director: : [id number] Requested By: Raymundo Stevenson Order Number: [id number] Reading MD: Shauna Crouch Measurements Intervals [place] Rate: 71 P: AK: 0 QRS: 9 QRSD: 86 T: 52 QT: 406 QTc: 443 Interpretive Statements ATRIAL FIBRILLATION ABNORMAL RHYTHM ECG NSTTW abnormalities SIMILAR 09/09/18 Electronically Signed on 12-24-2018 10:08:26 EDT by Shauna Crouch
--- NOTE | 2018-12-24 10:40 | HPE ---
DATE OF ADMISSION: 12/24/2018 78-year-old woman with a history of coronary artery disease (CAD) status post stent, history of atrial flutter and atrial fibrillation, not on anticoagulation. Stasis dermatitis, history of lower extremity cellulitis, varicose veins, hypertension, who was recently diagnosed with cellulitis outpatient and started on Keflex twice daily who returned to urgent care because of right lower extremity pain. While in urgent care she was noted to be in atrial fibrillation and was sent to the emergency room. When she arrived in the emergency room, she was hemodynamically stable and noted to be in atrial fibrillation as per her baseline with no evidence of rapid ventricular rate. While in the emergency room, she reported left lower extremity pain and that her leg was swollen. Her exam was notable for excoriations and a lesion on the méndez of her left leg. She also had surrounding erythema and warmness to touch concerning for cellulitis. Initial vitals in the emergency room were notable for hypertension to systolic blood pressure 220 and diastolic 120. She was given labetalol with improvement of blood pressure to 142/68. Initial studies in the emergency room were notable for lower extremity Doppler ultrasound that was negative for deep vein thrombosis (DVT). She had a CTA/PE protocol that was negative for PE. She had an EKG that showed atrial fibrillation with normal rate. White count was 4.2, hemoglobin 13.4 with a hematocrit of 41.7 with platelets of 143. Her creatinine was noted to be 1.39. She was started on ceftriaxone. She received 1 gram of ceftriaxone while in the emergency room for presumed cellulitis and she is being admitted for cellulitis and hypertension. On meeting Ms. Biggs she reported that she has a history of lower extremity stasis dermatitis with chronic lower extremity edema bilaterally, she also has a history of pruritus of her legs and so she scratches them sometimes until she has excoriations and openings to her leg. She described that she has had periods of cellulitis prior and she was admitted a few years ago for right lower extremity cellulitis. She recently saw her outpatient provider her gave her Keflex twice daily that she had taken for a few days without improvement. Today she notes that her left lower extremity is quite painful. No drainage, just excoriations and a lesion that is on her central méndez of her left lower extremity. Review of systems was negative for any recent subjective fevers, chills, sweats. She has episodic shortness of breath but none sustained. No chest pain. No chest tightness. No palpitations. On asking her about anticoagulation for her baseline atrial fibrillation, she reports that she was once on Coumadin and it was stopped because she had profound epistaxis. Therefore she is not anticoagulated at this time. Review of systems is otherwise negative. PAST MEDICAL HISTORY: Notable for: Coronary artery disease (CAD) for which she has had one stent. A history of atrial flutter, ongoing, chronic atrial fibrillation. Stasis dermatitis. Varicose veins. Hypertension. REVIEW OF SYSTEMS: As noted above, her review of systems is negative for fever, chills, sweats, sustained shortness of breath, chest pain, palpitations, dizziness, hematuria, hematochezia, melena. Review of systems is positive for left lower extremity pain. It is also positive for bilateral lower extremity edema and bilateral lower extremity pruritus. The rest of the 12 point review of systems is negative. PHYSICAL EXAMINATION: GENERAL EXAM: She is a well appearing woman in no acute distress. She is alert and oriented times three. EYE EXAM: Her pupils are equal and reactive to light. She is anicteric. Her extraocular muscles are intact. ENT EXAM: She is atraumatic. She has moist mucous membranes. PULMONARY EXAM: She is clear to auscultation bilaterally. She has good air movement. No crackles or wheezing. HEART EXAM: She has a regular rate with an irregular rhythm. She has a pansystolic murmur heard throughout the precordium. ABDOMINAL EXAM: Soft, nontender. Her bowel sounds were normoactive. EXTREMITY EXAM: Notable for bilateral stasis dermatitis with skin changes and hyperpigmentation. Left lower extremity with excoriations with central linear long lesions with a width of about 2-3 mm and a length of about 4 cm. Warmth and redness around lesion. Without clear border because of hyperpigmentation. She has significant onychomycosis on the left lower extremity with atrophic great toenail, otherwise warm and well perfused with 2 DP pulses. NEUROLOGICAL EXAM: Shows normal speech. Normal strength in both upper extremities and lower extremities bilaterally with a normal tone. Cranial nerves are grossly intact and reflexes are 2+ at the patella. PSYCH EXAM: She is alert and oriented times three. ASSESSMENT: This is a 78-year-old woman with a history of stasis dermatitis and varicose veins and a history of cellulitis who is presenting to the emergency room with left lower extremity pain with evidence of extensive excoriations in the left lower extremity reporting persistent pruritus. Also notable for warmth, redness and open lesions in the left lower extremity concerning for cellulitis. At this time with no evidence of deep vein thrombosis (DVT). PLAN: 1. Left lower extremity cellulitis. Treat with ceftriaxone 2 grams every 24 hours. 2. Atrial fibrillation. Will continue metoprolol 25 twice a day. Will not start anticoagulation at this time given history of profound epistaxis on anticoagulation prior. Will however place on heparin subcu 5000 units every 8 hours. 3. History of glaucoma. Will continue latanoprost eye drops. 4. History of gastroesophageal reflux disease (GERD). Will continue omeprazole.
[2018-12-24] MEDS ORDERED: cefTRIAXone SOD 2 GM in D5W MINI-BAG PLUS 50 ML IV SCH (21:00)
[2018-12-25] VITALS: BP 152/82
[2018-12-25 04:00] VITALS: BP 142/76
[2018-12-25] MEDS: HEPARIN SOD (PORCINE) 5000 UNITS/ML VIAL SC SCH (05:01)
[2018-12-25] MEDS: SLF 3 ML SYR IV SCH (05:02)
[2018-12-25 05:42] LABS: HEMATOCRIT 36.5 % (36.0-47.0); HEMOGLOBIN 11.7 g/dl (12.0-15.5); MEAN CORPUSCULAR HEMOGLOBIN 31.5 pg (27.0-33.0); MEAN CORPUSCULAR HGB CONC 32.1 g/dl (32.0-36.5); MEAN CORPUSCULAR VOLUME 98.4 fl (80.0-96.0); PLATELET COUNT, AUTOMATED 117 10^3/uL (150-450); RED BLOOD COUNT 3.71 10^6/uL (4.00-5.40); WHITE BLOOD COUNT 3.6 10^3/uL (4.0-10.0)
[2018-12-25 06:05] LABS: CALCIUM LEVEL 8.4 MG/DL (8.8-10.2); CREATININE FOR GFR 1.1 MG/DL (0.55-1.30); GLOMERULAR FILTRATION RATE 51.3 (>39); MAGNESIUM LEVEL 1.5 MG/DL (1.8-2.4); POTASSIUM SERUM 3.8 MEQ/L (3.5-5.1)
[2018-12-25 08:00] VITALS: BP 180/76
[2018-12-25] MEDS: ASPIRIN 81 MG ENTERIC TAB PO SCH (08:30)
[2018-12-25] MEDS: METOPROLOL TART 25 MG TABLET PO SCH (08:30)
[2018-12-25] MEDS: OMEPRAZOLE 20 MG CAP PO SCH (08:30)
[2018-12-25] MEDS: hydroCHLOROthiazide 25 MG TAB PO SCH (08:30)
--- NOTE | 2018-12-25 11:22 | DS.PDOC ---
Discharge Summary General Date of Admission Dec 24, 2018 at 00:37 Date of Discharge 12/25/18 Discharge Summary Chief complaints Left lower extremity pain Final diagnosis Cellulitis Stasis dermatitis 78-year-old woman with a history of coronary artery disease (CAD) status post stent, history of atrial flutter and atrial fibrillation, not on anticoagulation because as per her, she had a massive epistasis and was told never to take and accommodation Stasis dermatitis, history of lower extremity cellulitis, varicose veins, hypertension, who was recently diagnosed with cellulitis outpatient and started on Keflex twice daily who returned to urgent care because of right lower extremity pain. While in urgent care she was noted to be in atrial fibrillation and was sent to the emergency room. When she arrived in the emergency room, she was hemodynamically stable and noted to be in atrial fibrillation as per her baseline with no evidence of rapid ventricular rate. While in the emergency room, she reported left lower extremity pain and that her leg was swollen. Her exam was notable for excoriations and a lesion on the méndez of her left leg. She also had surrounding erythema and warmness to touch concerning for cellulitis . Initial studies in the emergency room were notable for lower extremity Doppler ultrasound that was negative for deep vein thrombosis (DVT). She had a CTA/PE protocol that was negative for PE, though it was indeterminate, but the patient has no complaints of shortness of breath or any tachycardia. In any case, the risks and benefits of an echo, which were discussed with her again. She states that s She was started on ceftriaxone. She received 1 gram of ceftriaxone while in the emergency room for presumed cellulitis and she is being admitted for cellulitis and hypertension. No drainage, just excoriations and a lesion that is on her central méndez of her left lower extremity. We'll discharge on oral antibiotics, Augmentin for 3 more days. PHYSICAL EXAMINATION: GENERAL EXAM: She is a well appearing woman in no acute distress. She is alert and oriented times three. EYE EXAM: Her pupils are equal and reactive to light. She is anicteric. Her extraocular muscles are intact. ENT EXAM: She is atraumatic. She has moist mucous membranes. PULMONARY EXAM: She is clear to auscultation bilaterally. She has good air movement. No crackles or wheezing. HEART EXAM: She has a regular rate with an irregular rhythm. She has a pansystolic murmur heard throughout the precordium. ABDOMINAL EXAM: Soft, nontender. Her bowel sounds were normoactive. EXTREMITY EXAM: Notable for bilateral stasis dermatitis with skin changes and hyperpigmentation. Left lower extremity with excoriations with central linear long lesions with a width of about 2-3 mm and a length of about 4 cm. no warmth and redness around lesion. Without clear border because of hyperpigmentation. She has significant onychomycosis on the left lower extremity with atrophic great toenail, otherwise warm and well perfused with 2 DP pulses. NEUROLOGICAL EXAM: Shows normal speech. Normal strength in both upper extremities and lower extremities bilaterally with a normal tone. Cranial nerves are grossly intact and reflexes are 2+ at the patella. PSYCH EXAM: She is alert and oriented times three. Medications. As per discharge reconciliation medication list Activity as tolerated Diet. 2 g sodium diet Follow-up appointments. PCP in 1 week , cardiology as per her scheduled arun ointment Condition on discharge. Patient is medically optimized for discharge Discharge disposition: Home Total time spent on this discharge including coordination of care, review of chart documentation and actual contact is around 35 minutes Vital Signs/I&Os Vital Signs Date Time Temp Pulse Resp B/P (MAP) Pulse Ox O2 Delivery O2 Flow Rate FiO2 12/25/18 08:00 98.3 73 18 180/76 (110) 98 Room Air I&O- Last 24 Hours up to 6 AM 12/25/18 06:00 Intake Total 720 ml Output Total 975 ml Balance -255 ml Laboratory Data Labs 24H Laboratory Tests 2 12/25/18 05:17: Nucleated Red Blood Cells % (auto) 0.0, Anion Gap 7L, Glomerular Filtration Rate 51.3, Lactic Acid Level 1.2, Calcium Level 8.4L, Magnesium Level 1.5L CBC/BMP Laboratory Tests 12/25/18 05:17 Microbiology Microbiology 12/23/18 Blood Culture - Preliminary, Resulted No growth after 24 hours . All specim... 12/23/18 Blood Culture - Preliminary, Resulted No growth after 24 hours . All specim... Discharge Medications Scheduled Aspirin (Aspirin EC) 81 Mg Tablet.dr, 81 MG PO DAILY, (Reported) Bimatoprost (Lumigan) 50 Drop/2.5 Ml Eli, 1 DROP OU QHS, (Reported) Calcium Carbonate/Vitamin D3 (Calcium 500-Vit D3 200 Tablet) 1 Tab Tab, 1 TAB PO DAILY, (Reported) Hydrochlorothiazide (Hydrochlorothiazide) 25 Mg Tablet, 25 MG PO DAILY, (Reported) Metoprolol Tartrate (Metoprolol Tartrate) 25 Mg Tablet, 25 MG PO BID, (Reported) Omeprazole (Omeprazole) 20 Mg Capsule.dr, 20 MG PO DAILY, (Reported) Scheduled PRN Carboxymethylcellulose Sodium (Refresh Tears) 0.5 % Mario, 1 DROP OU QID PRN for DRY EYES, (Reported) Allergies Coded Allergies: No Known Allergies (Verified Allergy, Unknown, 09/09/18) MAL ROLLINS MD Dec 25, 2018 11:22
[2018-12-25] MEDS ORDERED: AUGM875T28 PO (11:25)
== END 2018-12-25 13:32 | disposition home or self-care (01) | DRG 603 ==
LOC: M ED 17:49 → M ED INP 12-24 00:37 → M PCU 12-24 01:49
PROVIDERS: ADMIT Internal Medicine; ATTEND Internal Medicine
DX: L03.116 Cellulitis of left lower limb (principal); I48.92 Unspecified atrial flutter; Z95.5 Presence of coronary angioplasty implant and graft; I25.10 Atherosclerotic heart disease of native coronary artery without angina pectoris; I48.91 Unspecified atrial fibrillation; I10 Essential (primary) hypertension; H40.9 Unspecified glaucoma; K21.9 Gastro-esophageal reflux disease without esophagitis; I87.2 Venous insufficiency (chronic) (peripheral); I86.8 Varicose veins of other specified sites; L29.9 Pruritus, unspecified; Z79.899 Other long term (current) drug therapy; Z79.82 Long term (current) use of aspirin

== ENCOUNTER → 2019-02-06 | Outpatient (CLI) | payer MEDICARE, OTHER ==
[~2019-02-06] MED LIST changes: +ACET1TAB55 PO; +ASPI-161 PO; +ASPI81TA85 PO; +IBUP-1022 PO; +ISOVUE-370 76% 100ML VIAL (Q9967) As Ordered ONE; +KEFL500C17 PO; +METO1TAB87 PO; +TRIA1CR80 TOP; +VANI1CRE5 EX; +[UNRECOGNIZED DRUG - CODE] PO
--- NOTE | 2019-02-06 09:47 | REP ---
CAROTID ULTRASOUND: Real-time ultrasound evaluation and duplex Doppler interrogation of the extracranial carotid vasculature is performed. There is mild plaquing and narrowing in both carotid bulbs extending into the internal and external carotid arteries. Luminal narrowing is less than 50%. There is no evidence of hemodynamically significant stenosis of either internal carotid artery. Normal flow velocities are seen. The vertebral arteries demonstrate normal direction of flow. RIGHT LEFT Peak systolic velocity ICA 45.9 cm/s 48.3 cm/s End diastolic velocity ICA 11.4 cm/s 19.8 cm/s Peak systolic velocity CCA 56.2 cm/s 65.1 cm/s Peak systolic velocity ECA 60.8 cm/s 53.2 cm/s ICA/CCA ratio 0.82 0.74 IMPRESSION: Bilateral luminal narrowing of the internal carotid arteries less than 50%. No evidence of hemodynamically significant stenosis. Electronically Signed by Jonah Sands MD 02/06/2019 09:38 A
--- NOTE | 2019-02-06 11:26 | REP ---
Intra and extracranial CTA is: 02/06/2019. Indication: Stroke. Comparison: 12/28/2017. Technique: High resolution axial CT images of the intra and extracranial circulations were performed following IV administration of 75 ml Isovue 370. Findings: There is no intracranial vessel occlusion. No intracranial AVM is detected. 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 Intracranial atherosclerotic disease is redemonstrated most pronounced involving the right supraclinoid and V4 segments. There is no hemodynamically significant extracranial ICA stenosis by NASCET criteria. Mild to moderate atherosclerotic narrowing of the proximal ICAs is present bilaterally, more pronounced on the right. The great vessel origins are unremarkable. There is moderate atherosclerotic right vertebral origin stenosis. The left vertebral artery is dominant. Impression: Intracranial atherosclerotic disease with the greatest degree of stenosis involving the right supraclinoid ICA and right V4 segments. No vessel occlusion. Stable right A1/A2 junction aneurysm new. No hemodynamically significant extracranial ICA stenosis by NASCET criteria. Electronically Signed by Brendan Brewer DO 02/06/2019 11:17 A
== END ==
LOC: M RAD 07:45
PROVIDERS: ATTEND Physician Assistant
DX: I65.23 Occlusion and stenosis of bilateral carotid arteries (principal)
CPT/HCPCS: 70496; 70498; 93880; Q9967

== ENCOUNTER → 2019-02-18 | Outpatient (CLI) | payer MEDICARE, OTHER ==
[~2019-02-18] MED LIST changes: +ASPI-255 PO; +ATOR1TAB21 PO; +BENA20TA8 PO; +D3 22000 PO; -ISOVUE-370 76% 100ML VIAL (Q9967) As Ordered ONE; +MAG400TA PO
--- NOTE | 2019-02-18 12:33 | REP ---
COMPLETE ABDOMINAL SONOGRAPHY: HISTORY: Measure spleen. Comparison CT study, January 05, 2016. FINDINGS: Scanning through the right upper quadrant of the abdomen demonstrates a normal sized, thin-walled gallbladder without evidence of stone or polyp. The common bile duct measures 0.8 cm in greatest diameter, mildly prominent. No pancreatic abnormality is seen. Calcification in the pancreatic artery is noted. There is a hyperechoic area in the liver 1 cm in diameter corresponding with the calcification seen in this portion of the liver on CT study. This is felt to be a granuloma. No liver mass lesion is seen. Spleen is normal in size measuring 8.7 x 8.1 x 3.1 cm, and homogeneous in texture. There is no evidence of ascites. Renal cortical echogenicity pattern is normal and contours are smooth. Right kidney measures 8.5 x 3.1 x 3.4 cm. Left renal dimensions are 9.6 x 4.0 x 3.6 cm. No hydronephrosis is seen on either side. There is a 0.8 cm cyst in the upper to mid pole laterally on the right. There is a 1.7 cm cyst in mid pole position on the left. IMPRESSION: Normal size spleen. Granulomatous calcification in the liver. Vascular calcifications noted in the splenic artery. There is a small cyst in each kidney. Electronically Signed by Asher Farley MD 02/18/2019 03:31 P
== END ==
LOC: M RAD 07:42
PROVIDERS: ATTEND Internal Medicine Hematology
DX: D64.9 Anemia, unspecified (principal)

== ENCOUNTER 2020-09-09 13:21 | Observation (INO) | payer MEDICARE, OTHER ==
[~2020-09-09] VITALS: Ht 154.9 cm; Wt 50.7 kg
[~2020-09-09 13:21] MED LIST changes: +AMLO1TAB24 PO; -AMLO5TAB6 PO; -ASPI81TA85 PO; +ASPI81TA86 PO; +BENA-8 PO; -BENA20TA8 PO; +COLC0.6T47 PO; -COLC1TAB13 PO; +HYDR-3490 PO; -HYDR25TAB PO; +LOSA50TA28 PO; -LOSA50TA88 PO; -MAG400TA PO; +MAGN400T35 PO; +MULT1TAB74; -MULTTAB4; +OMEP-173 PO; -OMEP-218 PO; +PRED50TA PO
[2020-09-09 14:09] LABS: BASO % 0.6 % (0.0-1.0); EOS # 0.1 10^3/uL (0.0-0.5); HEMATOCRIT 43.7 % (36.0-47.0); LYMPH # 1.1 10^3/uL (1.5-5.0); LYMPH % 21.3 % (24.0-44.0); MEAN CORPUSCULAR HEMOGLOBIN 32.3 pg (27.0-33.0); MEAN CORPUSCULAR VOLUME 100.9 fl (80.0-96.0); MONO # 0.4 10^3/uL (0.0-0.8); MONO % 8.4 % (2.0-8.0); NEUTROPHILS # 3.6 10^3/uL (1.5-8.5); NEUTROPHILS % 68.3 % (36.0-66.0); PLATELET COUNT, AUTOMATED 119 10^3/uL (150-450); RED BLOOD COUNT 4.33 10^6/uL (4.00-5.40); WHITE BLOOD COUNT 5.3 10^3/uL (4.0-10.0)
[2020-09-09 14:47] LABS: BLOOD UREA NITROGEN 41 MG/DL (7-18); CALCIUM LEVEL 9.4 MG/DL (8.8-10.2); CARBON DIOXIDE LEVEL 28 MEQ/L (21-32); CHLORIDE LEVEL 105 MEQ/L (98-107); CK-MB VALUE MASS 1.6 NG/ML (<3.6); CPK CREATINE PHOSPHOKINASE 128 U/L (26-192); CREATININE FOR GFR 1.47 MG/DL (0.55-1.30); GLOMERULAR FILTRATION RATE 36.6 (>39); GLUCOSE, FASTING 166 MG/DL (70-100); MAGNESIUM LEVEL 1.8 MG/DL (1.8-2.4); MB/CK RELATIVE INDEX 1.25 (< OR =4); POTASSIUM SERUM 4.1 MEQ/L (3.5-5.1); SODIUM LEVEL 142 MEQ/L (136-145); TROPONIN I < 0.02 NG/ML (< 0.10)
[2020-09-09] MEDS ORDERED: NS 500 ML IV ONE (15:10)
[2020-09-09] MEDS ORDERED: ISOVUE-370 76% 100ML VIAL As Ordered ONE (15:10)
[2020-09-09] MEDS ORDERED: ACETAMINOPHEN TAB 650MG DOSE (2X325MG) PO PRN (16:35)
[2020-09-09] MEDS ORDERED: MAALOX 30 ML SUSP *UDC PO PRN (16:35)
[2020-09-09] MEDS ORDERED: MOM 30ML SUSPENSION UDC PO PRN (16:35)
[2020-09-09] MEDS ORDERED: ASPI-161 PO (16:46)
[2020-09-09] MEDS ORDERED: FLUTISP NARES (16:46)
[2020-09-09] MEDS ORDERED: ALLO300T2 PO (16:46)
[2020-09-09] MEDS ORDERED: OYST500T12 PO (16:46)
[2020-09-09] MEDS ORDERED: VANI1CRE5 TOP (16:46)
[2020-09-09] MEDS ORDERED: LORA-674 PO (16:46)
[2020-09-09] MEDS ORDERED: PATIENT COMMENT (16:48)
[2020-09-09] MEDS ORDERED: HOME MED LIST COMPLETE! XX SCH (16:50)
[2020-09-09] MEDS ORDERED: VANICREAM MOISTURIZING SKIN CREAM 113GM TUBE TOP PRN (17:10)
[2020-09-09] MEDS ORDERED: FLUTICASONE PROP 0.05% NASAL SPRAY 16 GM (FLONASE) NARES PRN (17:10)
[2020-09-09 17:43] LABS: RSV AMPLIFICATION NEGATIVE (NEGATIVE)
[2020-09-09] MEDS: HEPARIN SOD (PORCINE) 5000UNITS/ML 1ML VIAL/SYRINGE SC SCH (21:00)
[2020-09-09 23:17] VITALS: BP 145/82
[2020-09-09 23:30] VITALS: BP_SYST 145; BP_SYST 146; BP_SYST 161; BP_DIAS 81; BP_DIAS 82; BP_DIAS 97
[2020-09-10 06:00] VITALS: BP 139/80
[2020-09-10 06:22] LABS: HEMATOCRIT 40.7 % (36.0-47.0); HEMOGLOBIN 13.3 g/dl (12.0-15.5); MEAN CORPUSCULAR HEMOGLOBIN 32.8 pg (27.0-33.0); MEAN CORPUSCULAR HGB CONC 32.7 g/dl (32.0-36.5); MEAN CORPUSCULAR VOLUME 100.5 fl (80.0-96.0); PLATELET COUNT, AUTOMATED 117 10^3/uL (150-450); RED BLOOD COUNT 4.05 10^6/uL (4.00-5.40); WHITE BLOOD COUNT 4.7 10^3/uL (4.0-10.0)
[2020-09-10 06:49] LABS: ALBUMIN 3.3 GM/DL (3.2-5.2); CALCIUM LEVEL 8.5 MG/DL (8.8-10.2); CREATININE FOR GFR 1.32 MG/DL (0.55-1.30); GLOMERULAR FILTRATION RATE 41.4 (>39); POTASSIUM SERUM 3.8 MEQ/L (3.5-5.1); TOTAL PROTEIN 6.7 GM/DL (6.4-8.2)
[2020-09-10 09:00] VITALS: BP 100/72
[2020-09-10] MEDS ORDERED: OMEPRAZOLE 20MG CAP PO SCH (09:00)
[2020-09-10] MEDS ORDERED: CALCIUM/VITAMIN D 500 MG TAB PO SCH (09:00)
[2020-09-10] MEDS ORDERED: LORATADINE 10 MG TAB PO SCH (09:00)
[2020-09-10] MEDS ORDERED: ATORVASTATIN 20 MG TAB PO SCH (09:00)
[2020-09-10] MEDS ORDERED: BENAZEPRIL 20 MG TAB PO SCH (09:00)
[2020-09-10] MEDS ORDERED: ASPIRIN 81MG ENTERIC TABLET PO SCH (09:00)
[2020-09-10] MEDS ORDERED: MAGNESIUM OXIDE 400MG TAB (MAG-OX) PO SCH (09:00)
[2020-09-10] MEDS ORDERED: allopurinoL 300 MG TAB PO SCH (09:00)
[2020-09-10] MEDS: HEPARIN SOD (PORCINE) 5000UNITS/ML 1ML VIAL/SYRINGE SC SCH (09:10)
[2020-09-10 09:30] VITALS: BP_SYST 100; BP_SYST 108; BP_DIAS 63; BP_DIAS 72
== END 2020-09-10 14:24 | disposition home or self-care (01) ==
LOC: M ED 13:21 → M ED INP 13:22 → ENRESERV 20:03 → M MSPAV 23:15
PROVIDERS: ADMIT Family Medicine; ATTEND Family Medicine
DX: R55 Syncope and collapse (principal); I48.91 Unspecified atrial fibrillation; I12.9 Hypertensive chronic kidney disease with stage 1 through stage 4 chronic kidney disease, or unspecified chronic kidney disease; I35.2 Nonrheumatic aortic (valve) stenosis with insufficiency; Z95.2 Presence of prosthetic heart valve; I25.10 Atherosclerotic heart disease of native coronary artery without angina pectoris; E78.5 Hyperlipidemia, unspecified; M10.9 Gout, unspecified; H40.9 Unspecified glaucoma; N18.9 Chronic kidney disease, unspecified; K21.9 Gastro-esophageal reflux disease without esophagitis; K44.9 Diaphragmatic hernia without obstruction or gangrene; Z95.5 Presence of coronary angioplasty implant and graft; Z79.899 Other long term (current) drug therapy; Z79.82 Long term (current) use of aspirin
CPT/HCPCS: 36415; 70450; 71045; 71275; 72125; 74177; 80048; 80053; 82550; 82553; 83735; 84443; 84484; 85025; 85027; 87631; 93005; 93041; 93306; 94760; 96360; 96372; 97161; 99285; G0378; J1644; Q9967

== ENCOUNTER 2021-07-24 18:22 | Inpatient (IN) | payer MEDICARE, OTHER ==
[~2021-07-24] VITALS: Ht 157.5 cm; Wt 42.3 kg
[~2021-07-24 18:22] MED LIST changes: +ALLO300T2 PO; +FLUTISP NARES; +LORA-674 PO; +OYST500T12 PO; +PATIENT COMMENT; +VANI1CRE5 TOP
[2021-07-24] MEDS ORDERED: AMLO1TAB24 PO (18:32)
[2021-07-24] MEDS ORDERED: NS 1,000 ML IV SCH (18:35)
[2021-07-24 19:53] LABS: BASO % 0.3 % (0.0-1.0); EOS % 0.2 % (0.0-3.0); HEMATOCRIT 49.8 % (36.0-47.0); HEMOGLOBIN 16.9 g/dl (12.0-15.5); LYMPH # 1.2 10^3/uL (1.5-5.0); LYMPH % 13.4 % (24.0-44.0); MEAN CORPUSCULAR HEMOGLOBIN 33.8 pg (27.0-33.0); MEAN CORPUSCULAR HGB CONC 33.9 g/dl (32.0-36.5); MEAN CORPUSCULAR VOLUME 99.6 fl (80.0-96.0); MONO # 0.8 10^3/uL (0.0-0.8); MONO % 9.4 % (2.0-8.0); NEUTROPHILS # 6.6 10^3/uL (1.5-8.5); NEUTROPHILS % 76.1 % (36.0-66.0); PLATELET COUNT, AUTOMATED 120 10^3/uL (150-450); WHITE BLOOD COUNT 8.7 10^3/uL (4.0-10.0)
[2021-07-24] MEDS ORDERED: NS 500 ML IV ONE (20:00)
[2021-07-24 20:09] LABS: INR 0.99; PROTHROMBIN TIME 13.5 SECONDS (12.7-14.5)
[2021-07-24 20:10] LABS: PARTIAL THROMBOPLASTIN TIME 27.2 SECONDS (25.9-37.0)
[2021-07-24 20:22] LABS: ALBUMIN 3.4 GM/DL (3.2-5.2); BILIRUBIN,DIRECT 0.4 MG/DL (0.0-0.2); BILIRUBIN,TOTAL 1.6 MG/DL (0.2-1.0); CALCIUM LEVEL 9.5 MG/DL (8.8-10.2); CREATININE FOR GFR 1.89 MG/DL (0.55-1.30); GLOMERULAR FILTRATION RATE 27.3 (>39); POTASSIUM SERUM 4.4 MEQ/L (3.5-5.1); TOTAL PROTEIN 7.8 GM/DL (6.4-8.2)
[2021-07-24 20:42] LABS: RSV AMPLIFICATION NEGATIVE (NEGATIVE)
[2021-07-24] MEDS ORDERED: HYDR-3490 PO (21:21)
[2021-07-24] MEDS ORDERED: PRES10CA2 PO (21:21)
[2021-07-24] MEDS ORDERED: BENA-8 PO (21:21)
[2021-07-24] MEDS ORDERED: COMB0.2S OP (21:21)
[2021-07-24] MEDS ORDERED: CETI-24 PO (21:21)
[2021-07-24] MEDS ORDERED: MED REC COMMENT (21:21)
[2021-07-24] MEDS ORDERED: HOME MED LIST COMPLETE! XX SCH (21:25)
[2021-07-24] MEDS ORDERED: FLUTICASONE PROP 0.05% NASAL SPRAY 16 GM (FLONASE) NARES PRN (23:20)
[2021-07-24] MEDS ORDERED: REMDESIVIR 200 MG in NS 250 ML IV ONE (23:20)
[2021-07-24] MEDS ORDERED: ACETAMINOPHEN TAB 650MG DOSE (2X325MG) PO PRN (23:20)
[2021-07-24] MEDS: NS 1,000 ML IV SCH (23:20)
[2021-07-24] MEDS ORDERED: MAALOX 30 ML SUSP *UDC PO PRN (23:20)
[2021-07-24] MEDS ORDERED: MOM 30ML SUSPENSION UDC PO PRN (23:20)
[2021-07-25 00:10] LABS: FREE T4 1.84 NG/DL (0.76-1.46); THYROID STIMULATING HORMONE 0.492 uIU/ML (0.358-3.740)
[2021-07-25 01:12] LABS: CK-MB VALUE MASS 2.9 NG/ML (<3.6); MB/CK RELATIVE INDEX 3.67 (< OR =4)
[2021-07-25] MEDS ORDERED: SODIUM CHLORIDE 0.9% INJ 10 ML SYR IV ONE (01:20)
[2021-07-25 03:20] VITALS: BP 138/63
[2021-07-25] MEDS: SODIUM CHLORIDE 0.9% INJ 10 ML SYR IV SCH (06:00)
[2021-07-25] MEDS ORDERED: HEPARIN SOD (PORCINE) 5000UNITS/ML 1ML VIAL/SYRINGE SC SCH (06:00)
[2021-07-25] MEDS: REMDESIVIR 100 MG in NS 250 ML IV SCH (06:18)
[2021-07-25 08:12] LABS: BASO % 0.3 % (0.0-1.0); EOS % 0.4 % (0.0-3.0); HEMATOCRIT 49.4 % (36.0-47.0); HEMOGLOBIN 16.5 g/dl (12.0-15.5); LYMPH # 1.3 10^3/uL (1.5-5.0); LYMPH % 16.8 % (24.0-44.0); MEAN CORPUSCULAR HEMOGLOBIN 34.1 pg (27.0-33.0); MEAN CORPUSCULAR HGB CONC 33.4 g/dl (32.0-36.5); MEAN CORPUSCULAR VOLUME 102.1 fl (80.0-96.0); MONO % 11.9 % (2.0-8.0); NEUTROPHILS # 5.6 10^3/uL (1.5-8.5); NEUTROPHILS % 70.1 % (36.0-66.0); RED BLOOD COUNT 4.84 10^6/uL (4.00-5.40)
[2021-07-25 08:14] LABS: PLATELET COUNT, AUTOMATED 96 10^3/uL (150-450)
[2021-07-25 08:30] LABS: INR 1.03; PROTHROMBIN TIME 13.9 SECONDS (12.7-14.5)
[2021-07-25 08:31] LABS: FIBRINOGEN 298 MG/DL (268-480); PARTIAL THROMBOPLASTIN TIME 31.7 SECONDS (25.9-37.0)
[2021-07-25] MEDS: MAGNESIUM OXIDE 400MG TAB (MAG-OX) PO SCH (08:33)
[2021-07-25] MEDS: ASPIRIN 81MG ENTERIC TABLET PO SCH (08:33)
[2021-07-25] MEDS: OMEPRAZOLE 20MG CAP PO SCH (08:33)
[2021-07-25] MEDS: NS 1,000 ML IV SCH ×2 (08:33→16:50)
[2021-07-25] MEDS: CETIRIZINE (ZyrTEC) 10 MG TAB PO SCH (08:33)
[2021-07-25] MEDS: ATORVASTATIN 20 MG TAB PO SCH (08:33)
[2021-07-25] MEDS: amLODIPine 5 MG TAB PO SCH (08:36)
[2021-07-25] MEDS: BRIMONIDINE 0.15% OPHTH SOLN 5 ML OU SCH ×2 (08:38→20:55)
[2021-07-25 08:45] LABS: CK-MB VALUE MASS 3.3 NG/ML (<3.6); MB/CK RELATIVE INDEX 3.75 (< OR =4)
[2021-07-25 08:47] LABS: ALBUMIN 2.8 GM/DL (3.2-5.2); BILIRUBIN,TOTAL 1.3 MG/DL (0.2-1.0); C REACTIVE PROTEIN QUANTITATIV 0.58 MG/DL (0.00-0.30); CALCIUM LEVEL 8.8 MG/DL (8.8-10.2); CREATININE FOR GFR 1.47 MG/DL (0.55-1.30); GLOMERULAR FILTRATION RATE 36.5 (>39); MAGNESIUM LEVEL 2.1 MG/DL (1.8-2.4); POTASSIUM SERUM 3.4 MEQ/L (3.5-5.1); TOTAL PROTEIN 6.5 GM/DL (6.4-8.2)
[2021-07-25] MEDS ORDERED: BENAZEPRIL 20 MG TAB PO SCH (09:00)
[2021-07-25] MEDS: POLYVINYL ALCOHOL OPHTH SOLN 15 ML(LIQUITEARS) OU SCH ×4 (09:00→21:00)
[2021-07-25 09:16] LABS: D-DIMER QUANT > 4000 ng/ml (<500)
[2021-07-25] MEDS ORDERED: POTASSIUM CHLORIDE 10MEQ SR TABLET PO ONE (10:00)
[2021-07-25] MEDS ORDERED: CEPACOL LOZENGE PO PRN (12:20)
[2021-07-25 12:57] LABS: CK-MB VALUE MASS 3.8 NG/ML (<3.6); MB/CK RELATIVE INDEX 4.52 (< OR =4)
[2021-07-25 14:00] VITALS: BP 115/60
[2021-07-25] MEDS: HEPARIN SOD (PORCINE) 5000UNITS/ML 1ML VIAL/SYRINGE SC SCH ×2 (15:14→21:03)
[2021-07-25 20:32] VITALS: BP 112/66
[2021-07-25] MEDS ORDERED: LATANOPROST 0.005% OPHTH SOLN 2.5 ML OU SCH (21:00)
[2021-07-26] MEDS: NS 1,000 ML IV SCH ×3 (02:03→15:20)
[2021-07-26 04:09] VITALS: BP 132/88
[2021-07-26] MEDS: HEPARIN SOD (PORCINE) 5000UNITS/ML 1ML VIAL/SYRINGE SC SCH ×2 (05:51→14:13)
[2021-07-26] MEDS: REMDESIVIR 100 MG in NS 250 ML IV SCH (05:52)
[2021-07-26] MEDS: SODIUM CHLORIDE 0.9% INJ 10 ML SYR IV SCH (05:53)
[2021-07-26 07:10] LABS: BASO % 0.4 % (0.0-1.0); EOS # 0.1 10^3/uL (0.0-0.5); HEMATOCRIT 43.2 % (36.0-47.0); LYMPH # 1.2 10^3/uL (1.5-5.0); LYMPH % 24.5 % (24.0-44.0); MEAN CORPUSCULAR HEMOGLOBIN 34.7 pg (27.0-33.0); MEAN CORPUSCULAR HGB CONC 33.6 g/dl (32.0-36.5); MEAN CORPUSCULAR VOLUME 103.3 fl (80.0-96.0); MONO # 0.6 10^3/uL (0.0-0.8); MONO % 11.5 % (2.0-8.0); NEUTROPHILS % 62.4 % (36.0-66.0); RED BLOOD COUNT 4.18 10^6/uL (4.00-5.40); WHITE BLOOD COUNT 4.9 10^3/uL (4.0-10.0)
[2021-07-26 07:20] LABS: PLATELET COUNT, AUTOMATED 92 10^3/uL (150-450)
[2021-07-26 07:21] LABS: HEMOGLOBIN 14.5 g/dl (12.0-15.5)
[2021-07-26 07:31] LABS: ALBUMIN 2.5 GM/DL (3.2-5.2); BILIRUBIN,TOTAL 0.8 MG/DL (0.2-1.0); CALCIUM LEVEL 7.9 MG/DL (8.8-10.2); CREATININE FOR GFR 1.21 MG/DL (0.55-1.30); GLOMERULAR FILTRATION RATE 45.7 (>39); MAGNESIUM LEVEL 1.7 MG/DL (1.8-2.4); POTASSIUM SERUM 3.8 MEQ/L (3.5-5.1); TOTAL PROTEIN 5.8 GM/DL (6.4-8.2)
[2021-07-26] MEDS ORDERED: MAG SULF 1GM/100ML (MAG RUN) 1 GM in IV 1 EA IV ONE (08:05)
[2021-07-26] MEDS: POLYVINYL ALCOHOL OPHTH SOLN 15 ML(LIQUITEARS) OU SCH ×3 (09:00→17:08)
[2021-07-26 10:06] VITALS: BP 132/88
[2021-07-26] MEDS: OMEPRAZOLE 20MG CAP PO SCH (10:06)
[2021-07-26] MEDS: ASPIRIN 81MG ENTERIC TABLET PO SCH (10:06)
[2021-07-26] MEDS: ATORVASTATIN 20 MG TAB PO SCH (10:06)
[2021-07-26] MEDS: amLODIPine 5 MG TAB PO SCH (10:06)
[2021-07-26] MEDS: BRIMONIDINE 0.15% OPHTH SOLN 5 ML OU SCH (10:07)
[2021-07-26] MEDS: MAGNESIUM OXIDE 400MG TAB (MAG-OX) PO SCH (10:07)
[2021-07-26] MEDS: CETIRIZINE (ZyrTEC) 10 MG TAB PO SCH (10:07)
[2021-07-26] MEDS ORDERED: ALBUTEROL 90 MCG/ACT 8GM HFA INHALER INH PRN (11:30)
[2021-07-26] MEDS ORDERED: EPINEPHrine INJ 1 MG/ML 1ML AMP IM PRN (11:30)
[2021-07-26] MEDS ORDERED: diphenhydrAMINE 50MG/ML VIAL (J1200) IV PRN (11:30)
[2021-07-26] MEDS ORDERED: methylPREDNISolone 125MG 2ML VIAL IV PRN (11:30)
[2021-07-26] MEDS ORDERED: ALBUTEROL SULFATE 2.5 MG/0.5 ML INH NEB SOLN INH PRN (11:30)
[2021-07-26] MEDS ORDERED: BEBTELOVIMAB 175MG 2ML VIAL (EUA) IV ONE (11:30)
[2021-07-26 14:00] VITALS: BP 116/78
[2021-07-26] MEDS ORDERED: SODIUM PHOSPHATE INJ 20 MMOL in D5W 250 ML IV ONE (15:00)
[2021-07-26 19:27] VITALS: BP 127/69
== END 2021-07-26 20:24 | disposition home or self-care (01) | DRG 177 ==
LOC: M ED 18:22 → M ED INP 23:19 → ENRESERV 07-25 02:06 → M 4MAIN 07-25 03:09
PROVIDERS: ADMIT Family Medicine; ATTEND Internal Medicine
PROC: XW033E5 Introduction of Remdesivir Anti-infective into Peripheral Vein, Percutaneous Approach, New Technology Group 5 (ICD-10-PCS; principal; 2021-07-24)
DX: U07.1 COVID-19 (principal); E43 Unspecified severe protein-calorie malnutrition; N17.9 Acute kidney failure, unspecified; Z68.1 Body mass index [BMI] 19.9 or less, adult; I48.91 Unspecified atrial fibrillation; I25.10 Atherosclerotic heart disease of native coronary artery without angina pectoris; Z95.5 Presence of coronary angioplasty implant and graft; Z95.2 Presence of prosthetic heart valve; E78.5 Hyperlipidemia, unspecified; M10.9 Gout, unspecified; K21.9 Gastro-esophageal reflux disease without esophagitis; R00.1 Bradycardia, unspecified; I12.9 Hypertensive chronic kidney disease with stage 1 through stage 4 chronic kidney disease, or unspecified chronic kidney disease; N18.31 Chronic kidney disease, stage 3a; H40.9 Unspecified glaucoma; Z79.82 Long term (current) use of aspirin; Z79.899 Other long term (current) drug therapy; R53.1 Weakness; D75.1 Secondary polycythemia; D69.6 Thrombocytopenia, unspecified; R63.4 Abnormal weight loss; E87.6 Hypokalemia

== ENCOUNTER 2021-07-26 21:44 | Outpatient (CLI) | payer MEDICARE, OTHER ==
[2021-07-26] MEDS: BEBTELOVIMAB 175MG 2ML VIAL (EUA) IV ONE ×2 (12:40→20:32)
[2021-07-26 20:33] VITALS: BP 127/69
[2021-07-26 21:32] VITALS: BP 132/94
[~2021-07-26 21:44] MED LIST changes: +ACETAMINOPHEN TAB 650MG DOSE (2X325MG) PO PRN; +ALBUTEROL 90 MCG/ACT 8GM HFA INHALER INH PRN; +ALBUTEROL SULFATE 2.5 MG/0.5 ML INH NEB SOLN INH PRN; +CETI-24 PO; +COMB0.2S OP; +EPINEPHrine INJ 1 MG/ML 1ML AMP IM PRN; +MED REC COMMENT; +NS 1,000 ML IV SCH; +PRES10CA2 PO; +diphenhydrAMINE 50MG/ML VIAL (J1200) IV PRN; +methylPREDNISolone 125MG 2ML VIAL IV PRN
== END 2021-07-26 21:45 ==
LOC: M OPCLI4 21:44
PROVIDERS: ATTEND Internal Medicine
DX: U07.1 COVID-19 (principal)

== ENCOUNTER 2021-09-02 15:46 | Emergency (ER) | payer MEDICARE, OTHER ==
[~2021-09-02] VITALS: Ht 152.4 cm; Wt 40.9 kg
[~2021-09-02 15:46] MED LIST changes: -ACETAMINOPHEN TAB 650MG DOSE (2X325MG) PO PRN; -ALBUTEROL 90 MCG/ACT 8GM HFA INHALER INH PRN; -ALBUTEROL SULFATE 2.5 MG/0.5 ML INH NEB SOLN INH PRN; -EPINEPHrine INJ 1 MG/ML 1ML AMP IM PRN; -NS 1,000 ML IV SCH; -diphenhydrAMINE 50MG/ML VIAL (J1200) IV PRN; -methylPREDNISolone 125MG 2ML VIAL IV PRN
[2021-09-02 19:13] LABS: BASO % 0.7 % (0.0-1.0); EOS % 0.5 % (0.0-3.0); HEMATOCRIT 43.1 % (36.0-47.0); HEMOGLOBIN 14.5 g/dl (12.0-15.5); LYMPH # 1.2 10^3/uL (1.5-5.0); LYMPH % 30.8 % (24.0-44.0); MEAN CORPUSCULAR HEMOGLOBIN 34.5 pg (27.0-33.0); MEAN CORPUSCULAR HGB CONC 33.6 g/dl (32.0-36.5); MEAN CORPUSCULAR VOLUME 102.6 fl (80.0-96.0); MONO # 0.6 10^3/uL (0.0-0.8); MONO % 13.7 % (2.0-8.0); NEUTROPHILS # 2.2 10^3/uL (1.5-8.5); NEUTROPHILS % 54.1 % (36.0-66.0); PLATELET COUNT, AUTOMATED 134 10^3/uL (150-450)
[2021-09-02] MEDS ORDERED: VALA1TAB5 PO (22:59)
[2021-09-02] MEDS ORDERED: valACYclovir HCL 500 MG TAB PO ONE (23:00)
[2021-09-02 23:22] VITALS: BP 129/79
== END 2021-09-03 00:04 | disposition home or self-care (01) ==
LOC: M ED 15:46
DX: B02.30 Zoster ocular disease, unspecified (principal); I10 Essential (primary) hypertension; Z79.899 Other long term (current) drug therapy; Z79.82 Long term (current) use of aspirin

== ENCOUNTER 2021-11-24 09:55 | Emergency (ER) | payer MEDICARE, OTHER ==
[~2021-11-24] VITALS: Ht 157.5 cm; Wt 40.1 kg
[~2021-11-24 09:55] MED LIST changes: +VALA1TAB5 PO
[2021-11-24] MEDS ORDERED: predniSONE 20 MG TAB PO ONE (12:05)
[2021-11-24] MEDS ORDERED: PRED10TA2 PO (12:44)
[2021-11-24 13:15] VITALS: BP 137/74
== END 2021-11-24 13:16 | disposition home or self-care (01) ==
LOC: M ED 09:55
DX: M10.9 Gout, unspecified (principal); J02.9 Acute pharyngitis, unspecified; M19.041 Primary osteoarthritis, right hand; I12.9 Hypertensive chronic kidney disease with stage 1 through stage 4 chronic kidney disease, or unspecified chronic kidney disease; I50.9 Heart failure, unspecified; Z95.0 Presence of cardiac pacemaker; Z90.710 Acquired absence of both cervix and uterus; Z79.899 Other long term (current) drug therapy
CPT/HCPCS: 73130; 87400; 87426; 87880; 99283; J7512

== ENCOUNTER 2023-11-26 12:00 | Inpatient (IN) | payer MEDICARE, OTHER ==
[~2023-11-26] VITALS: Ht 154.9 cm; Wt 46.6 kg
[~2023-11-26 12:00] MED LIST changes: -ASPI-161 PO; +ASPI-615 PO; +LORA-1041 PO; -LORA-674 PO; +PRED10TA2 PO
[2023-11-26 16:40] LABS: BASO % 0.7 % (0.0-1.0); EOS # 0.1 10^3/uL (0.0-0.5); EOS % 2.1 % (0.0-3.0); HEMATOCRIT 44.2 % (36.0-47.0); HEMOGLOBIN 14.2 g/dl (12.0-15.5); LYMPH # 1.3 10^3/uL (1.5-5.0); LYMPH % 29.3 % (24.0-44.0); MEAN CORPUSCULAR HEMOGLOBIN 32.9 pg (27.0-33.0); MEAN CORPUSCULAR HGB CONC 32.1 g/dl (32.0-36.5); MEAN CORPUSCULAR VOLUME 102.3 fl (80.0-96.0); MONO # 0.5 10^3/uL (0.0-0.8); MONO % 12.4 % (2.0-8.0); NEUTROPHILS # 2.4 10^3/uL (1.5-8.5); NEUTROPHILS % 55.3 % (36.0-66.0); PLATELET COUNT, AUTOMATED 134 10^3/uL (150-450); RED BLOOD COUNT 4.32 10^6/uL (4.00-5.40); WHITE BLOOD COUNT 4.4 10^3/uL (4.0-10.0)
[2023-11-26 17:03] LABS: ALBUMIN 3.7 G/DL (3.2-5.2); BILIRUBIN,DIRECT 0.3 MG/DL (<0.4); CALCIUM LEVEL 9.5 MG/DL (8.3-10.6); CREATININE FOR GFR 1.31 MG/DL (0.55-1.30); GLOMERULAR FILTRATION RATE 41.4 (>32); POTASSIUM SERUM 4.7 MMOL/L (3.5-5.1); TOTAL PROTEIN 7.4 G/DL (5.7-8.2)
[2023-11-26 17:10] LABS: INR 0.99; PARTIAL THROMBOPLASTIN TIME 29.5 SECONDS (24.8-34.2); PROTHROMBIN TIME 12.8 SECONDS (12.5-14.5)
[2023-11-26] MEDS ORDERED: ISOVUE-370 76% 100ML VIAL As Ordered ONE (17:13)
[2023-11-26] MEDS: MECLIZINE 25 MG TABLET PO ONE (18:14)
[2023-11-26] MEDS: ACETAMINOPHEN 325 MG TAB PO ONE (18:15)
[2023-11-26] MEDS ORDERED: HOME MED LIST COMPLETE! XX SCH (20:05)
[2023-11-26] MEDS: FUROSEMIDE 40MG/4ML VIAL IV ONE (20:29)
[2023-11-26] MEDS ORDERED: VANICREAM MOISTURIZING SKIN CREAM 113GM TUBE TOP PRN (23:15)
[2023-11-26] MEDS ORDERED: FLUTICASONE PROP 0.05% NASAL SPRAY 16 GM (FLONASE) NARES PRN (23:15)
[2023-11-26] MEDS: FUROSEMIDE 20MG/2ML VIAL IV ONE (23:41)
[2023-11-27 07:08] LABS: HEMATOCRIT 41.3 % (36.0-47.0); HEMOGLOBIN 13.5 g/dl (12.0-15.5); MEAN CORPUSCULAR HEMOGLOBIN 33.7 pg (27.0-33.0); MEAN CORPUSCULAR HGB CONC 32.7 g/dl (32.0-36.5); PLATELET COUNT, AUTOMATED 116 10^3/uL (150-450); RED BLOOD COUNT 4.01 10^6/uL (4.00-5.40); WHITE BLOOD COUNT 3.2 10^3/uL (4.0-10.0)
[2023-11-27 07:39] LABS: ALBUMIN 3.2 G/DL (3.2-5.2); ALKALINE PHOSPHATASE 93 U/L (46-116); ALT/SGPT < 9 U/L (7.0-40); AST/SGOT 27 U/L (<34); BILIRUBIN,TOTAL 0.8 MG/DL (0.3-1.2); BLOOD UREA NITROGEN 28 MG/DL (9-23); CALCIUM LEVEL 9.1 MG/DL (8.3-10.6); CARBON DIOXIDE LEVEL 30 MMOL/L (20-31); CHLORIDE LEVEL 108 MMOL/L (98-107); CREATININE FOR GFR 1.36 MG/DL (0.55-1.30); GLOMERULAR FILTRATION RATE 39.6 (>32); GLUCOSE, FASTING 92 MG/DL (74-106); POTASSIUM SERUM 3.8 MMOL/L (3.5-5.1); SODIUM LEVEL 141 MMOL/L (136-145); TOTAL PROTEIN 6.3 G/DL (5.7-8.2)
[2023-11-27] MEDS: HEPARIN SOD (PORCINE) 5000UNITS/ML 1ML VIAL/SYRINGE SC SCH (08:48)
[2023-11-27] MEDS: allopurinoL 300 MG TAB PO SCH (08:48)
[2023-11-27] MEDS: ASPIRIN 81MG ENTERIC TABLET PO SCH (08:49)
[2023-11-27] MEDS: OMEPRAZOLE 20MG CAP PO SCH (08:49)
[2023-11-27] MEDS: CALCIUM/VITAMIN D 500 MG TAB PO SCH (08:49)
[2023-11-27] MEDS: CETIRIZINE (ZyrTEC) 10 MG TAB PO SCH (08:50)
[2023-11-27] MEDS: ATORVASTATIN 20 MG TAB PO SCH (08:50)
[2023-11-27] MEDS: amLODIPine 5 MG TAB PO SCH (08:50)
[2023-11-27 15:34] VITALS: BP 150/92; TEMP 97; O2SAT 97
[2023-11-27] MEDS: LATANOPROST 0.005% OPHTH SOLN 2.5 ML OU SCH (21:09)
[2023-11-27 21:10] VITALS: BP_SYST 152; BP_SYST 153; BP_SYST 99; BP_DIAS 53; BP_DIAS 81; BP_DIAS 88
[2023-11-28 04:14] VITALS: BP 149/80; TEMP 98
[2023-11-28 06:16] LABS: EOS # 0.2 10^3/uL (0.0-0.5); EOS % 4.6 % (0.0-3.0); HEMATOCRIT 39.5 % (36.0-47.0); HEMOGLOBIN 13.3 g/dl (12.0-15.5); LYMPH # 1.3 10^3/uL (1.5-5.0); LYMPH % 32.5 % (24.0-44.0); MEAN CORPUSCULAR HEMOGLOBIN 33.9 pg (27.0-33.0); MEAN CORPUSCULAR HGB CONC 33.7 g/dl (32.0-36.5); MEAN CORPUSCULAR VOLUME 100.8 fl (80.0-96.0); MONO # 0.5 10^3/uL (0.0-0.8); MONO % 13.7 % (2.0-8.0); NEUTROPHILS # 1.9 10^3/uL (1.5-8.5); NEUTROPHILS % 48.2 % (36.0-66.0); PLATELET COUNT, AUTOMATED 122 10^3/uL (150-450); RED BLOOD COUNT 3.92 10^6/uL (4.00-5.40); WHITE BLOOD COUNT 3.9 10^3/uL (4.0-10.0)
[2023-11-28 06:28] LABS: CALCIUM LEVEL 8.8 MG/DL (8.3-10.6); CREATININE FOR GFR 1.41 MG/DL (0.55-1.30); MAGNESIUM LEVEL 1.6 MG/DL (1.8-2.4); POTASSIUM SERUM 3.8 MMOL/L (3.5-5.1)
[2023-11-28] MEDS: POTASSIUM CHLORIDE 10MEQ SR TABLET PO ONE (08:45)
[2023-11-28] MEDS: MAG SULF 1GM/100ML (MAG RUN) 1 GM in IV 1 EA IV SCH (09:11)
[2023-11-28 10:00] VITALS: BP 153/91; TEMP 97.3; O2SAT 100
[2023-11-28 12:00] VITALS: BP 145/82; TEMP 97.3; O2SAT 91
[2023-11-28 13:00] VITALS: BP_SYST 148; BP_SYST 151; BP_SYST 170; BP_DIAS 87; BP_DIAS 91; BP_DIAS 99
[2023-11-28 20:00] VITALS: BP_SYST 108; BP_SYST 153; BP_SYST 158; BP_DIAS 74; BP_DIAS 90
[2023-11-29] VITALS (8 sets, daily range): BP systolic 132–174; BP diastolic 68–105; TEMP 97.3; O2SAT 94–96
[2023-11-29 06:07] LABS: BASO % 1.1 % (0.0-1.0); EOS # 0.2 10^3/uL (0.0-0.5); HEMOGLOBIN 12.9 g/dl (12.0-15.5); LYMPH # 1.3 10^3/uL (1.5-5.0); LYMPH % 34.9 % (24.0-44.0); MEAN CORPUSCULAR HEMOGLOBIN 33.9 pg (27.0-33.0); MEAN CORPUSCULAR HGB CONC 33.1 g/dl (32.0-36.5); MEAN CORPUSCULAR VOLUME 102.4 fl (80.0-96.0); MONO # 0.5 10^3/uL (0.0-0.8); MONO % 13.1 % (2.0-8.0); NEUTROPHILS # 1.6 10^3/uL (1.5-8.5); NEUTROPHILS % 45.3 % (36.0-66.0); PLATELET COUNT, AUTOMATED 118 10^3/uL (150-450); RED BLOOD COUNT 3.81 10^6/uL (4.00-5.40); WHITE BLOOD COUNT 3.6 10^3/uL (4.0-10.0)
[2023-11-29 06:23] LABS: CALCIUM LEVEL 8.7 MG/DL (8.3-10.6); CREATININE FOR GFR 1.43 MG/DL (0.55-1.30); GLOMERULAR FILTRATION RATE 37.4 (>32); MAGNESIUM LEVEL 2.1 MG/DL (1.8-2.4)
[2023-11-29] MEDS: ACETAMINOPHEN TAB 650MG DOSE (2X325MG) PO PRN (18:10)
[2023-11-30 04:17] VITALS: BP 144/78; TEMP 97.5; O2SAT 94
[2023-11-30 07:02] LABS: CALCIUM LEVEL 8.8 MG/DL (8.3-10.6); CREATININE FOR GFR 1.16 MG/DL (0.55-1.30); GLOMERULAR FILTRATION RATE 47.6 (>32); MAGNESIUM LEVEL 1.9 MG/DL (1.8-2.4); POTASSIUM SERUM 3.8 MMOL/L (3.5-5.1)
[2023-11-30 10:10] VITALS: BP 144/78
[2023-11-30 12:00] VITALS: BP 125/84; TEMP 97.3; O2SAT 93
== END 2023-11-30 16:40 | disposition home or self-care (01) | DRG 312 ==
LOC: M ED 12:00 → M ED INP 23:01 → M MSPAV 11-27 15:35
PROVIDERS: ADMIT Preventive Medicine Undersea and Hyperbaric Medicine; ATTEND Student in an Organized Health Care Education/Training Program
DX: I95.1 Orthostatic hypotension (principal); I50.32 Chronic diastolic (congestive) heart failure; I48.19 Other persistent atrial fibrillation; I13.0 Hypertensive heart and chronic kidney disease with heart failure and stage 1 through stage 4 chronic kidney disease, or unspecified chronic kidney disease; D75.1 Secondary polycythemia; I25.10 Atherosclerotic heart disease of native coronary artery without angina pectoris; M10.9 Gout, unspecified; E78.5 Hyperlipidemia, unspecified; K21.9 Gastro-esophageal reflux disease without esophagitis; I65.21 Occlusion and stenosis of right carotid artery; N18.30 Chronic kidney disease, stage 3 unspecified; D69.6 Thrombocytopenia, unspecified; R53.1 Weakness; Z95.5 Presence of coronary angioplasty implant and graft; Z79.82 Long term (current) use of aspirin; Z95.3 Presence of xenogenic heart valve; Z79.899 Other long term (current) drug therapy

== ENCOUNTER 2024-08-13 14:06 | Inpatient (IN) | payer MEDICARE, OTHER ==
[~2024-08-13] VITALS: Ht 154.9 cm; Wt 47.2 kg
[2024-08-13 04:00] VITALS: BP 132/81; TEMP 97.1; O2SAT 93
[~2024-08-13 14:06] MED LIST changes: +ACET32TAB PO; +AMLO1TAB25 PO; +LASI20TA3 PO; +MOM30SS2 PO; +POLY1.4S OU; -PRED50TA PO; +PRED50TA57 PO; +PRENTAB9 PO; +TOLT2CAP4 PO
[2024-08-13] MEDS ORDERED: FLUTICASONE PROPIONATE 0.05% NASAL SPRAY 16 GM NARES PRN (14:40)
[2024-08-13] MEDS ORDERED: ACETAMINOPHEN 325 MG TAB PO PRN (14:40)
[2024-08-13] MEDS ORDERED: POLYVINYL ALCOHOL OPHTH SOLN 15ML (LIQUITEARS) OU PRN (14:40)
[2024-08-13] MEDS ORDERED: MOM 30 ML SUSPENSION UDC PO PRN ×2 (14:40→14:50)
[2024-08-13] MEDS ORDERED: VANICREAM MOISTURIZING SKIN CREAM 113GM TUBE TOP PRN (14:40)
[2024-08-13] MEDS ORDERED: HYDROCODONE/ACETAMINOPHEN 5/325 MG TABLET PO PRN (14:40)
[2024-08-13] MEDS ORDERED: MAALOX 30 ML SUSP *UDC PO PRN (14:50)
[2024-08-13] MEDS ORDERED: BISACODYL 10 MG SUPP PR PRN (14:50)
[2024-08-13] MEDS ORDERED: SIMETHICONE 80MG CHEW TAB PO PRN (14:50)
[2024-08-13] MEDS ORDERED: BISACODYL 5 MG TAB PO PRN (14:50)
[2024-08-13 15:19] VITALS: BP 166/86; TEMP 96.9; O2SAT 94
[2024-08-13] MEDS ORDERED: PILL CUTTER 1 EACH XX PRN (16:20)
[2024-08-13] MEDS: ACETAMINOPHEN 500 MG TAB PO ONE (17:54)
[2024-08-13 20:00] VITALS: BP_SYST 132; BP_SYST 156; BP_DIAS 81; BP_DIAS 86; TEMP 97; TEMP 97.1; O2SAT 93; O2SAT 95
[2024-08-13 20:30] VITALS: O2SAT 97
[2024-08-13] MEDS: LATANOPROST 0.005% OPHTH SOLN 2.5 ML OU SCH (21:00)
[2024-08-13] MEDS: DOCUSATE SODIUM 100 MG CAPSULE PO SCH (21:33)
[2024-08-13] MEDS: SENNA 8.6 MG TAB PO SCH (21:33)
[2024-08-13] MEDS: METOPROLOL TART 25 MG TABLET PO SCH (21:33)
[2024-08-13] MEDS: HEPARIN SOD 5000 UNITS/ML 1 ML VIAL/SYRINGE SC SCH (21:34)
[2024-08-13] MEDS: DICLOFENAC EPOLAMINE 1.3% PATCH TOP SCH (21:34)
[2024-08-14 04:00] VITALS: BP_SYST 132; BP_SYST 156; BP_DIAS 81; BP_DIAS 86; TEMP 97; TEMP 97.1; O2SAT 93; O2SAT 95
[2024-08-14] MEDS: ACETAMINOPHEN 500 MG TAB PO SCH (06:00)
[2024-08-14 07:48] LABS: HEMATOCRIT 45.8 % (36.0-47.0); HEMOGLOBIN 14.7 g/dl (12.0-15.5); LYMPH % 18.4 % (24.0-44.0); MEAN CORPUSCULAR HEMOGLOBIN 33.3 pg (27.0-33.0); MEAN CORPUSCULAR HGB CONC 32.1 g/dl (32.0-36.5); MEAN CORPUSCULAR VOLUME 103.9 fl (80.0-96.0); MONO # 0.5 10^3/uL (0.0-0.8); MONO % 8.7 % (2.0-8.0); NEUTROPHILS # 3.7 10^3/uL (1.5-8.5); NEUTROPHILS % 72.5 % (36.0-66.0); PLATELET COUNT, AUTOMATED 118 10^3/uL (150-450); RED BLOOD COUNT 4.41 10^6/uL (4.00-5.40); WHITE BLOOD COUNT 5.2 10^3/uL (4.0-10.0)
[2024-08-14] MEDS: ASPIRIN 81 MG ENTERIC TABLET PO SCH (09:22)
[2024-08-14] MEDS: predniSONE 10 MG TAB PO SCH (09:22)
[2024-08-14] MEDS: CALCIUM/VITAMIN D 500 MG TAB PO SCH (09:23)
[2024-08-14] MEDS: OMEPRAZOLE 20MG CAP PO SCH (09:23)
[2024-08-14] MEDS: CETIRIZINE 10 MG TAB PO SCH (09:23)
[2024-08-14 09:25] LABS: ALBUMIN 2.5 G/DL (3.2-5.2); BILIRUBIN,TOTAL 0.6 MG/DL (0.3-1.2); CALCIUM LEVEL 8.1 MG/DL (8.3-10.6); CREATININE FOR GFR 1.82 MG/DL (0.55-1.30); GLOMERULAR FILTRATION RATE 27.4 (>32); POTASSIUM SERUM 4.9 MMOL/L (3.5-5.1); TOTAL PROTEIN 5.6 G/DL (5.7-8.2)
[2024-08-14] MEDS: ATORVASTATIN 20 MG TAB PO SCH (09:34)
[2024-08-14] MEDS: FUROSEMIDE 20 MG TAB PO SCH (09:36)
[2024-08-14] MEDS: amLODIPine 10 MG TAB PO SCH (09:36)
[2024-08-14] MEDS: TOLTERODINE TARTRATE 2 MG LA CAP PO SCH (10:55)
[2024-08-14] MEDS: PRENATAL VITAMINS CHEWABLE TABLET PO SCH (11:11)
[2024-08-14 12:00] VITALS: BP 142/70; TEMP 96.9; O2SAT 95
[2024-08-14 20:00] VITALS: BP 153/92; TEMP 98.3; O2SAT 97
[2024-08-15 04:00] VITALS: BP 137/78; TEMP 97; O2SAT 93
[2024-08-15] MEDS: ONDANSETRON 4MG ORAL DISINTEGRATING TAB SL PRN (11:10)
[2024-08-15 12:00] VITALS: BP 127/73; TEMP 97.1; O2SAT 91
[2024-08-15 21:13] VITALS: BP 125/82; TEMP 97.2; O2SAT 93
[2024-08-16 04:46] VITALS: BP 153/91; TEMP 97.4; O2SAT 97
[2024-08-16 12:00] VITALS: BP 130/72; TEMP 97.5; O2SAT 100
[2024-08-16 20:00] VITALS: BP 158/72; TEMP 98.2; O2SAT 91
[2024-08-16] MEDS: traMADol 50 MG TAB PO PRN (22:51)
[2024-08-17 04:00] VITALS: BP 159/73; TEMP 97.7; O2SAT 92
[2024-08-17] MEDS: traMADol 50 MG TAB PO PRN (07:39)
[2024-08-17 12:00] VITALS: BP 138/67; TEMP 97; O2SAT 95
[2024-08-17 19:50] VITALS: BP 129/75; TEMP 97.2; O2SAT 94
[2024-08-18 04:00] VITALS: BP 135/80; TEMP 97.2; O2SAT 95
[2024-08-18 12:01] VITALS: BP 140/79; TEMP 97.2; O2SAT 96
[2024-08-18] MEDS: NYSTATIN 500,000U/5ML SUSP UDC SS SCH (12:11)
[2024-08-18] MEDS: MAGIC MOUTHWASH 5 ML ORAL SYRINGE SSP SCH (17:42)
[2024-08-18 20:00] VITALS: BP 142/80; TEMP 97.5; O2SAT 95
[2024-08-19 04:00] VITALS: BP 155/92; TEMP 96.9; O2SAT 96
[2024-08-19] MEDS: LIDOCAINE 5% PATCH TD SCH (11:29)
[2024-08-19 11:53] VITALS: BP 128/76; TEMP 97.5; O2SAT 95
[2024-08-19 20:00] VITALS: BP 144/78; TEMP 97.1; O2SAT 94
[2024-08-19] MEDS ORDERED: DICLOFENAC EPOLAMINE 1.3% PATCH TOP SCH (21:00)
[2024-08-19] MEDS: DICLOFENAC EPOLAMINE 1.3% PATCH TOP SCH (21:27)
[2024-08-20 03:10] VITALS: BP 188/80; TEMP 97; O2SAT 92
[2024-08-20 03:24] VITALS: BP 174/97
[2024-08-20 05:11] VITALS: BP 165/82
[2024-08-20 12:00] VITALS: BP 122/61; TEMP 98; O2SAT 92
[2024-08-20 20:00] VITALS: BP 163/79; TEMP 98; O2SAT 94
[2024-08-20] MEDS: LOSARTAN 50 MG TABLET PO SCH (22:33)
[2024-08-21] MEDS: **hydrALAZINE HCL** 25 MG TAB PO PRN (03:49)
[2024-08-21 03:50] VITALS: BP 170/85; TEMP 97.4; O2SAT 99
[2024-08-21 05:10] VITALS: BP 163/97
[2024-08-21 13:08] VITALS: BP 135/60; TEMP 97.3; O2SAT 93
[2024-08-21] MEDS ORDERED: MAGIC MOUTHWASH 5 ML ORAL SYRINGE SSP PRN (14:55)
[2024-08-21 19:28] VITALS: BP 147/83; TEMP 96.7; O2SAT 99
[2024-08-22 03:33] VITALS: BP 163/79; TEMP 96.6; O2SAT 94
[2024-08-22 12:00] VITALS: BP 162/87; TEMP 96.8; O2SAT 100
[2024-08-22 12:12] VITALS: BP 144/83; TEMP 96.8; O2SAT 94
[2024-08-22] MEDS: NITROGLYCERIN 0.4MG SUBL TABLET SL PRN (14:13)
[2024-08-22 20:00] VITALS: BP 167/92; TEMP 97.5; O2SAT 95
[2024-08-22 22:12] VITALS: BP 153/88
[2024-08-23 03:43] VITALS: BP 163/73; TEMP 97.3; O2SAT 95
[2024-08-23 06:00] VITALS: BP 152/79
[2024-08-23] MEDS: METOPROLOL TART 25 MG TABLET PO SCH (08:40)
[2024-08-23 12:00] VITALS: BP 150/74; TEMP 97.4; O2SAT 96
[2024-08-23 20:07] VITALS: BP 132/78; TEMP 97.4; O2SAT 97
[2024-08-24 04:20] VITALS: BP 153/75; TEMP 97.5; O2SAT 95
[2024-08-24 12:00] VITALS: BP 138/83; TEMP 97; O2SAT 100
[2024-08-24 20:32] VITALS: BP 164/82; TEMP 97.4; O2SAT 95
[2024-08-24 22:28] VITALS: BP 162/87
[2024-08-24 23:16] VITALS: BP 150/84
[2024-08-25 04:07] VITALS: BP 152/88; TEMP 97.4; O2SAT 95
[2024-08-25 12:19] VITALS: BP 147/75; TEMP 97.2; O2SAT 92
[2024-08-25] MEDS ORDERED: LIDO5TD TD (12:58)
[2024-08-25] MEDS ORDERED: TRAM50TA2 PO (12:58)
[2024-08-25] MEDS ORDERED: NITR4TASL SL (12:58)
[2024-08-25] MEDS ORDERED: LOSA-528 PO (12:58)
[2024-08-25] MEDS ORDERED: CETI10TA PO (12:58)
[2024-08-25] MEDS ORDERED: METO1TAB87 PO (12:58)
[2024-08-25 19:37] VITALS: BP 161/77; TEMP 97.5; O2SAT 95
[2024-08-25 21:31] VITALS: BP 151/81
[2024-08-26 03:33] VITALS: BP 150/80; TEMP 96.8; O2SAT 90
[2024-08-26 08:27] VITALS: BP 160/86; TEMP 97; O2SAT 96
[2024-08-26 08:52] VITALS: BP 160/86
== END 2024-08-26 10:58 | disposition home health service (06) | DRG 91 ==
LOC: M PM&R 15:19 → UNDOADMIN 15:19 → M PM&R 15:40 → UNDODISIN 08-26 10:58
PROVIDERS: ADMIT Physical Medicine & Rehabilitation; ATTEND Physical Medicine & Rehabilitation
DX: G92.8 Other toxic encephalopathy (principal); I50.33 Acute on chronic diastolic (congestive) heart failure; N17.9 Acute kidney failure, unspecified; I82.611 Acute embolism and thrombosis of superficial veins of right upper extremity; M62.82 Rhabdomyolysis; B37.0 Candidal stomatitis; I48.19 Other persistent atrial fibrillation; I24.89 Other forms of acute ischemic heart disease; I25.10 Atherosclerotic heart disease of native coronary artery without angina pectoris; I11.0 Hypertensive heart disease with heart failure; I35.0 Nonrheumatic aortic (valve) stenosis; M10.9 Gout, unspecified; K21.9 Gastro-esophageal reflux disease without esophagitis; L89.152 Pressure ulcer of sacral region, stage 2; Z66 Do not resuscitate; R29.6 Repeated falls; M10.062 Idiopathic gout, left knee; R42 Dizziness and giddiness; H53.8 Other visual disturbances; R13.12 Dysphagia, oropharyngeal phase; M48.56XD Collapsed vertebra, not elsewhere classified, lumbar region, subsequent encounter for fracture with routine healing; R41.0 Disorientation, unspecified; T40.2X5A Adverse effect of other opioids, initial encounter; Z74.09 Other reduced mobility; Z74.1 Need for assistance with personal care; Z95.3 Presence of xenogenic heart valve; Z79.82 Long term (current) use of aspirin; Z79.52 Long term (current) use of systemic steroids; Z79.899 Other long term (current) drug therapy

== ENCOUNTER 2024-09-10 15:39 | Inpatient (IN) | payer MEDICARE, OTHER ==
[~2024-09-10] VITALS: Ht 157.5 cm; Wt 37.9 kg
[~2024-09-10 15:39] MED LIST changes: +CETI10TA PO; +LIDO5TD TD; +LOSA-528 PO; +NITR4TASL SL; +TRAM50TA2 PO
[2024-09-10 17:09] LABS: BASO # 0.0 10^3/uL (0.0-0.2); BASO % 0.7 % (0.0-1.0); EOS # 0.1 10^3/uL (0.0-0.5); EOS % 1.2 % (0.0-3.0); LYMPH # 0.7 10^3/uL (1.5-5.0); LYMPH % 15.9 % (24.0-44.0); MONO # 0.5 10^3/uL (0.0-0.8); MONO % 10.7 % (2.0-8.0); NEUTROPHILS # 3.0 10^3/uL (1.5-8.5); NEUTROPHILS % 70.8 % (36.0-66.0); PLATELET COUNT, AUTOMATED 167 10^3/uL (150-450)
[2024-09-10] MEDS ORDERED: med rec comment (17:21)
[2024-09-10] MEDS ORDERED: HOME MED LIST COMPLETE! XX SCH (17:25)
[2024-09-10 17:41] LABS: KETONE, URINE AUTO RFX NEGATIVE (NEGATIVE); LEUKOCYTE ESTERASE UR AUTO RFX NEGATIVE (NEGATIVE); MUCUS, URINE RFX SMALL (NEGATIVE); NITRITE, URINE AUTO RFX NEGATIVE (NEGATIVE); RBC, URINE AUTO RFX 3 /HPF (0-3); SQUAM EPITHELIAL CELL UR AURFX 0 /HPF (0-6)
[2024-09-10 17:52] LABS: WBC, URINE AUTO RFX 23 /HPF (0-3)
[2024-09-10 19:48] LABS: CK-MB VALUE MASS 2.8 NG/ML (<3.6)
[2024-09-10 20:00] LABS: ALT/SGPT 13.0 U/L (7.0-40); AST/SGOT 35.0 U/L (<34); CALCIUM LEVEL 8.8 MG/DL (8.3-10.6); CARBON DIOXIDE LEVEL 32.0 MMOL/L (20-31); CHLORIDE LEVEL 105.0 MMOL/L (98-107); CPK CREATINE PHOSPHOKINASE 50.0 U/L (34-145); CREATININE FOR GFR 1.42 MG/DL (0.55-1.30); GLOMERULAR FILTRATION RATE 36.9 (>32); MB/CK RELATIVE INDEX 5.6 (< OR =4); POTASSIUM SERUM 3.9 MMOL/L (3.5-5.1); SODIUM LEVEL 148.0 MMOL/L (136-145)
[2024-09-10] MEDS: LABETALOL 100 MG/20 ML VIAL IV STA ×2 (20:02→22:26)
[2024-09-10 22:27] LABS: CPK CREATINE PHOSPHOKINASE 43.0 U/L (34-145)
[2024-09-10 22:41] LABS: CK-MB VALUE MASS 2.8 NG/ML (<3.6); MB/CK RELATIVE INDEX 6.51 (< OR =4)
[2024-09-11] MEDS ORDERED: MAALOX 30 ML SUSP *UDC PO PRN (00:35)
[2024-09-11] MEDS ORDERED: MOM 30 ML SUSPENSION UDC PO PRN (00:35)
[2024-09-11] MEDS: LOSARTAN 50 MG TABLET PO SCH (01:17)
[2024-09-11] MEDS: METOPROLOL TART 25 MG TABLET PO SCH ×2 (01:18→20:21)
[2024-09-11 01:29] LABS: OSMOLALITY SERUM 319.0 MOSM/KG (280-301)
[2024-09-11] MEDS: LIDOCAINE 5% PATCH TD ONE (02:05)
[2024-09-11 03:39] VITALS: BP 154/91; TEMP 97; O2SAT 96
[2024-09-11 08:32] VITALS: BP 160/79; TEMP 97.8; O2SAT 92
[2024-09-11 09:22] LABS: BASO # 0.0 10^3/uL (0.0-0.2); BASO % 0.8 % (0.0-1.0); EOS # 0.1 10^3/uL (0.0-0.5); EOS % 1.9 % (0.0-3.0); LYMPH # 1.0 10^3/uL (1.5-5.0); LYMPH % 25.8 % (24.0-44.0); MONO # 0.4 10^3/uL (0.0-0.8); MONO % 11.0 % (2.0-8.0); NEUTROPHILS # 2.2 10^3/uL (1.5-8.5); NEUTROPHILS % 60.2 % (36.0-66.0); PLATELET COUNT, AUTOMATED 158 10^3/uL (150-450)
[2024-09-11 09:50] VITALS: BP 146/88
[2024-09-11 09:52] LABS: CALCIUM LEVEL 8.6 MG/DL (8.3-10.6); CARBON DIOXIDE LEVEL 34 MMOL/L (20-31); CHLORIDE LEVEL 104 MMOL/L (98-107); CREATININE FOR GFR 1.56 MG/DL (0.55-1.30); GLOMERULAR FILTRATION RATE 33.0 (>32); MAGNESIUM LEVEL 1.9 MG/DL (1.8-2.4); POTASSIUM SERUM 4.7 MMOL/L (3.5-5.1); SODIUM LEVEL 147 MMOL/L (136-145)
[2024-09-11] MEDS: ATORVASTATIN 20 MG TAB PO SCH (09:55)
[2024-09-11] MEDS: CETIRIZINE 10 MG TAB PO SCH (09:55)
[2024-09-11] MEDS: amLODIPine 10 MG TAB PO SCH (09:55)
[2024-09-11] MEDS: OMEPRAZOLE 20MG CAP PO SCH (09:55)
[2024-09-11] MEDS: PRENATAL VITAMINS CHEWABLE TABLET PO SCH (09:55)
[2024-09-11] MEDS: ASPIRIN 81 MG ENTERIC TABLET PO SCH (09:55)
[2024-09-11] MEDS ORDERED: PILL CUTTER 1 EACH XX PRN (09:55)
[2024-09-11] MEDS: TOLTERODINE TARTRATE 2 MG LA CAP PO SCH (09:55)
[2024-09-11] MEDS: HEPARIN SOD 5000 UNITS/ML 1 ML VIAL/SYRINGE SC SCH (09:56)
[2024-09-11] MEDS: D5W 1,000 ML IV SCH (10:22)
[2024-09-11 10:24] LABS: IRON (FE) 43 UG/DL (50-170); PERCENT SATURATION 20.2 % (13.2-45.0)
[2024-09-11 10:27] LABS: VITAMIN B12 LEVEL 950 PG/ML (211-911)
[2024-09-11 13:22] VITALS: BP 108/58; TEMP 97.9; O2SAT 98
[2024-09-11 16:16] VITALS: BP 98/56; TEMP 97; O2SAT 93
[2024-09-11 19:39] VITALS: BP 133/79; TEMP 97.1; O2SAT 97
[2024-09-11] MEDS: LATANOPROST 0.005% OPHTH SOLN 2.5 ML OU SCH (20:20)
[2024-09-12 05:33] VITALS: BP 150/84; TEMP 96.7; O2SAT 98
[2024-09-12] MEDS: LIDOCAINE 5% PATCH TD SCH (06:21)
[2024-09-12 06:24] LABS: BASO # 0.0 10^3/uL (0.0-0.2); BASO % 0.6 % (0.0-1.0); EOS # 0.1 10^3/uL (0.0-0.5); EOS % 4.1 % (0.0-3.0); LYMPH # 0.9 10^3/uL (1.5-5.0); LYMPH % 27.3 % (24.0-44.0); MONO # 0.4 10^3/uL (0.0-0.8); MONO % 11.6 % (2.0-8.0); NEUTROPHILS # 1.9 10^3/uL (1.5-8.5); NEUTROPHILS % 55.5 % (36.0-66.0); PLATELET COUNT, AUTOMATED 146 10^3/uL (150-450)
[2024-09-12 06:57] LABS: CALCIUM LEVEL 7.9 MG/DL (8.3-10.6); CARBON DIOXIDE LEVEL 33.0 MMOL/L (20-31); CHLORIDE LEVEL 101.0 MMOL/L (98-107); CREATININE FOR GFR 1.8 MG/DL (0.55-1.30); GLOMERULAR FILTRATION RATE 27.8 (>32); POTASSIUM SERUM 4.4 MMOL/L (3.5-5.1); SODIUM LEVEL 143.0 MMOL/L (136-145)
[2024-09-12 07:17] VITALS: BP 151/84; TEMP 97.1; O2SAT 97
[2024-09-12] MEDS: traMADol 50 MG TAB PO PRN (07:55)
[2024-09-12 11:59] VITALS: BP 117/58; TEMP 97.4; O2SAT 98
[2024-09-12 16:01] VITALS: BP 122/64; TEMP 97.3; O2SAT 85
[2024-09-12 19:45] VITALS: BP 131/80; TEMP 97; O2SAT 94
[2024-09-13 00:29] VITALS: BP 117/75; TEMP 97; O2SAT 96
[2024-09-13 03:02] VITALS: BP 139/77; TEMP 98.1; O2SAT 96
[2024-09-13] MEDS: ACETAMINOPHEN 325 MG TAB PO PRN (09:11)
[2024-09-13 11:34] VITALS: BP 130/71; TEMP 97.7; O2SAT 93
[2024-09-13 19:58] VITALS: BP 124/66; TEMP 97.9; O2SAT 96
[2024-09-14 05:01] VITALS: BP 139/77; TEMP 97.9; O2SAT 93
[2024-09-14 08:02] LABS: BASO # 0.0 10^3/uL (0.0-0.2); BASO % 0.6 % (0.0-1.0); EOS # 0.1 10^3/uL (0.0-0.5); EOS % 2.6 % (0.0-3.0); LYMPH # 1.0 10^3/uL (1.5-5.0); LYMPH % 28.9 % (24.0-44.0); MONO # 0.4 10^3/uL (0.0-0.8); MONO % 10.6 % (2.0-8.0); NEUTROPHILS # 2.0 10^3/uL (1.5-8.5); NEUTROPHILS % 56.4 % (36.0-66.0); PLATELET COUNT, AUTOMATED 142 10^3/uL (150-450)
[2024-09-14 08:32] LABS: ALT/SGPT 11.0 U/L (7.0-40); AST/SGOT 31.0 U/L (<34); CALCIUM LEVEL 8.1 MG/DL (8.3-10.6); CARBON DIOXIDE LEVEL 31.0 MMOL/L (20-31); CHLORIDE LEVEL 101.0 MMOL/L (98-107); CREATININE FOR GFR 1.8 MG/DL (0.55-1.30); GLOMERULAR FILTRATION RATE 27.8 (>32); POTASSIUM SERUM 4.5 MMOL/L (3.5-5.1); SODIUM LEVEL 143.0 MMOL/L (136-145)
[2024-09-14 11:59] VITALS: BP 123/65; TEMP 97.7; O2SAT 98
[2024-09-14 20:20] VITALS: BP 118/57; TEMP 98.1; O2SAT 98
[2024-09-15 04:53] VITALS: BP 142/75; TEMP 98.1; O2SAT 98
[2024-09-15 06:06] LABS: BASO # 0.0 10^3/uL (0.0-0.2); BASO % 0.7 % (0.0-1.0); EOS # 0.1 10^3/uL (0.0-0.5); EOS % 2.6 % (0.0-3.0); LYMPH # 1.1 10^3/uL (1.5-5.0); LYMPH % 25.3 % (24.0-44.0); MONO # 0.5 10^3/uL (0.0-0.8); MONO % 11.8 % (2.0-8.0); NEUTROPHILS # 2.5 10^3/uL (1.5-8.5); NEUTROPHILS % 59.1 % (36.0-66.0); PLATELET COUNT, AUTOMATED 144 10^3/uL (150-450)
[2024-09-15 06:29] LABS: ALT/SGPT 10.0 U/L (7.0-40); AST/SGOT 27.0 U/L (<34); CALCIUM LEVEL 8.0 MG/DL (8.3-10.6); CARBON DIOXIDE LEVEL 28.0 MMOL/L (20-31); CHLORIDE LEVEL 104.0 MMOL/L (98-107); CREATININE FOR GFR 1.83 MG/DL (0.55-1.30); GLOMERULAR FILTRATION RATE 27.2 (>32); MAGNESIUM LEVEL 1.8 MG/DL (1.8-2.4); POTASSIUM SERUM 4.5 MMOL/L (3.5-5.1); SODIUM LEVEL 145.0 MMOL/L (136-145)
[2024-09-15] MEDS ORDERED: **hydrALAZINE HCL** 25 MG TAB PO PRN (08:40)
[2024-09-15 12:00] VITALS: BP 119/63; TEMP 97.9; O2SAT 94
[2024-09-15] MEDS: traMADol 50 MG TAB PO PRN (18:50)
[2024-09-15 20:30] VITALS: BP 135/68; TEMP 97.5; O2SAT 93
[2024-09-15] MEDS: amLODIPine 5 MG TAB PO SCH (20:46)
[2024-09-15] MEDS: ACETAMINOPHEN 500 MG TAB PO SCH (21:00)
[2024-09-15] MEDS: FLUTICASONE PROPIONATE 0.05% NASAL SPRAY 16 GM NARES SCH (22:44)
[2024-09-16 04:23] VITALS: BP 130/78; TEMP 97.5; O2SAT 91
[2024-09-16 05:57] LABS: BASO # 0.0 10^3/uL (0.0-0.2); BASO % 0.6 % (0.0-1.0); EOS # 0.1 10^3/uL (0.0-0.5); EOS % 2.1 % (0.0-3.0); LYMPH # 1.3 10^3/uL (1.5-5.0); LYMPH % 26.9 % (24.0-44.0); MONO # 0.5 10^3/uL (0.0-0.8); MONO % 10.3 % (2.0-8.0); NEUTROPHILS # 2.8 10^3/uL (1.5-8.5); NEUTROPHILS % 59.5 % (36.0-66.0); PLATELET COUNT, AUTOMATED 138 10^3/uL (150-450)
[2024-09-16 06:18] LABS: CALCIUM LEVEL 8.0 MG/DL (8.3-10.6); CARBON DIOXIDE LEVEL 29.0 MMOL/L (20-31); CHLORIDE LEVEL 106.0 MMOL/L (98-107); CREATININE FOR GFR 1.67 MG/DL (0.55-1.30); GLOMERULAR FILTRATION RATE 30.4 (>32); POTASSIUM SERUM 4.6 MMOL/L (3.5-5.1); SODIUM LEVEL 146.0 MMOL/L (136-145)
[2024-09-16 08:00] VITALS: BP 126/74; TEMP 97; O2SAT 98
[2024-09-16 12:00] VITALS: BP 129/60; TEMP 97.5; O2SAT 90
[2024-09-16] MEDS ORDERED: HYDR25TA87 PO (15:06)
[2024-09-16] MEDS ORDERED: ACET-683 PO (15:06)
[2024-09-16] MEDS ORDERED: AMLO1TAB24 PO (15:06)
[2024-09-16] MEDS ORDERED: METO1TAB87 PO (15:06)
[2024-09-16 19:44] VITALS: BP 137/68; TEMP 98.1; O2SAT 94
[2024-09-16 20:45] VITALS: BP 126/66
[2024-09-17 04:00] VITALS: BP 156/82; TEMP 98.4; O2SAT 98
[2024-09-17 09:14] LABS: BASO # 0.0 10^3/uL (0.0-0.2); BASO % 0.4 % (0.0-1.0); EOS # 0.1 10^3/uL (0.0-0.5); EOS % 1.3 % (0.0-3.0); LYMPH # 1.0 10^3/uL (1.5-5.0); LYMPH % 22.0 % (24.0-44.0); MONO # 0.3 10^3/uL (0.0-0.8); MONO % 6.7 % (2.0-8.0); NEUTROPHILS # 3.2 10^3/uL (1.5-8.5); NEUTROPHILS % 68.9 % (36.0-66.0); PLATELET COUNT, AUTOMATED 146 10^3/uL (150-450)
[2024-09-17 09:29] VITALS: BP 118/66
[2024-09-17 09:31] LABS: CALCIUM LEVEL 8.2 MG/DL (8.3-10.6); CARBON DIOXIDE LEVEL 28.0 MMOL/L (20-31); CHLORIDE LEVEL 107.0 MMOL/L (98-107); CREATININE FOR GFR 1.6 MG/DL (0.55-1.30); GLOMERULAR FILTRATION RATE 32.0 (>32); POTASSIUM SERUM 4.4 MMOL/L (3.5-5.1); SODIUM LEVEL 147.0 MMOL/L (136-145)
[2024-09-17] MEDS ORDERED: AMLO1TAB24 PO (11:07)
[2024-09-17] MEDS ORDERED: LIDO5TD TD (11:07)
[2024-09-17] MEDS: LIDOCAINE 5% PATCH TD SCH (11:49)
== END 2024-09-17 12:25 | disposition home or self-care (01) | DRG 884 ==
LOC: M ED 15:39 → EDBD 15:39 → M ED INP 15:40 → M PCU 09-11 03:39 → OBSVTOIN 09-11 11:31 → M MSPAV 09-13 00:45
PROVIDERS: ADMIT Student in an Organized Health Care Education/Training Program; ATTEND Internal Medicine Nephrology
DX: R54 Age-related physical debility (principal); E43 Unspecified severe protein-calorie malnutrition; I50.32 Chronic diastolic (congestive) heart failure; I48.20 Chronic atrial fibrillation, unspecified; E87.0 Hyperosmolality and hypernatremia; Z68.1 Body mass index [BMI] 19.9 or less, adult; I13.0 Hypertensive heart and chronic kidney disease with heart failure and stage 1 through stage 4 chronic kidney disease, or unspecified chronic kidney disease; I16.9 Hypertensive crisis, unspecified; N17.9 Acute kidney failure, unspecified; R62.7 Adult failure to thrive; Z66 Do not resuscitate; E78.5 Hyperlipidemia, unspecified; K21.9 Gastro-esophageal reflux disease without esophagitis; D75.89 Other specified diseases of blood and blood-forming organs; M19.90 Unspecified osteoarthritis, unspecified site; N32.81 Overactive bladder; M10.9 Gout, unspecified; H40.9 Unspecified glaucoma; R29.6 Repeated falls; R26.89 Other abnormalities of gait and mobility; I25.10 Atherosclerotic heart disease of native coronary artery without angina pectoris; N18.32 Chronic kidney disease, stage 3b; Z79.82 Long term (current) use of aspirin; Z79.899 Other long term (current) drug therapy; Z95.2 Presence of prosthetic heart valve; Z95.5 Presence of coronary angioplasty implant and graft; L89.159 Pressure ulcer of sacral region, unspecified stage; K44.9 Diaphragmatic hernia without obstruction or gangrene

== ENCOUNTER 2024-10-29 19:47 | Inpatient (IN) | payer MEDICARE, OTHER ==
[~2024-10-29] VITALS: Ht 152.4 cm; Wt 49.1 kg
[~2024-10-29 19:47] MED LIST changes: +ACET-683 PO; -COLC0.6T47 PO; +COLC0.6T53 PO; +HYDR25TA87 PO; -IBUP-1022 PO; +IBUP600T42 PO; +med rec comment
[2024-10-29 21:22] LABS: BASO # 0.0 10^3/uL (0.0-0.2); BASO % 0.6 % (0.0-1.0); EOS # 0.0 10^3/uL (0.0-0.5); EOS % 0.9 % (0.0-3.0); LYMPH # 0.9 10^3/uL (1.5-5.0); LYMPH % 18.5 % (24.0-44.0); MONO # 0.5 10^3/uL (0.0-0.8); MONO % 10.6 % (2.0-8.0); NEUTROPHILS # 3.2 10^3/uL (1.5-8.5); NEUTROPHILS % 69.0 % (36.0-66.0); PLATELET COUNT, AUTOMATED 102 10^3/uL (150-450)
[2024-10-29 21:36] LABS: INR 0.91
[2024-10-29 21:44] LABS: CK-MB VALUE MASS 5.9 NG/ML (<3.6)
[2024-10-29 21:45] LABS: CALCIUM LEVEL 9.1 MG/DL (8.3-10.6); CARBON DIOXIDE LEVEL 28.0 MMOL/L (20-31); CHLORIDE LEVEL 107.0 MMOL/L (98-107); CREATININE FOR GFR 1.49 MG/DL (0.55-1.30); GLOMERULAR FILTRATION RATE 34.6 (>32); POTASSIUM SERUM 5.6 MMOL/L (3.5-5.1); SODIUM LEVEL 144.0 MMOL/L (136-145)
[2024-10-29 21:46] LABS: CPK CREATINE PHOSPHOKINASE 75.0 U/L (34-145); MB/CK RELATIVE INDEX 7.86 (< OR =4)
[2024-10-29] MEDS: CALCIUM GLUCONATE 1,000 MG in DEXTROSE 5% (D5W) MINI-BAG PLU 100 ML IV ONE (22:25)
[2024-10-29] MEDS: DEXTROSE 50% 50 ML SYRINGE IV STA (22:26)
[2024-10-29] MEDS: hydrALAZINE 20 MG/ML 1 ML VIAL IV ONE (22:27)
[2024-10-29] MEDS: HumuLIN R (REGULAR) INSULIN (NovoLIN R) **100 U/ML** PER UNIT IV ONE (22:29)
[2024-10-29] MEDS: ACETAMINOPHEN 325 MG TAB PO ONE (23:14)
[2024-10-29] MEDS: PATIROMER SORBITEX CALCIUM 8.4GM POWDER PACKET PO ONE (23:53)
[2024-10-29 23:55] LABS: CK-MB VALUE MASS 4.8 NG/ML (<3.6)
[2024-10-29 23:58] LABS: CPK CREATINE PHOSPHOKINASE 113.0 U/L (34-145); MB/CK RELATIVE INDEX 4.24 (< OR =4)
[2024-10-30] VITALS (10 sets, daily range): BP systolic 108–179; BP diastolic 56–93; TEMP 96–98.1; O2SAT 74–100
[2024-10-30] MEDS ORDERED: MOM 30 ML SUSPENSION UDC PO PRN (04:10)
[2024-10-30] MEDS ORDERED: MAALOX 30 ML SUSP *UDC PO PRN (04:10)
[2024-10-30 05:26] LABS: ETHYL ALCOHOL (ETHANOL) < 0.003 % (0.000-0.010)
[2024-10-30 05:28] LABS: ALT/SGPT 12 U/L (7.0-40); AST/SGOT 34 U/L (<34); CALCIUM LEVEL 8.7 MG/DL (8.3-10.6); CARBON DIOXIDE LEVEL 26 MMOL/L (20-31); CHLORIDE LEVEL 108 MMOL/L (98-107); CREATININE FOR GFR 1.45 MG/DL (0.55-1.30); GLOMERULAR FILTRATION RATE 35.8 (>32); MAGNESIUM LEVEL 1.8 MG/DL (1.8-2.4); POTASSIUM SERUM 4.9 MMOL/L (3.5-5.1); SALICYLATE LEVEL < 3.0 MG/DL (<30); SODIUM LEVEL 145 MMOL/L (136-145)
[2024-10-30] MEDS ORDERED: MILKSUS3 PO (08:48)
[2024-10-30] MEDS ORDERED: LIDO1PAD TOP (08:48)
[2024-10-30] MEDS ORDERED: ACET-897 PO (08:48)
[2024-10-30] MEDS ORDERED: METO25TA4 PO (08:48)
[2024-10-30] MEDS ORDERED: TRAM50TA2 PO (08:48)
[2024-10-30] MEDS ORDERED: POLY1.4S OU (08:48)
[2024-10-30] MEDS ORDERED: NITR0.4S14 SL (08:48)
[2024-10-30] MEDS ORDERED: HYDR25TA87 PO (08:48)
[2024-10-30] MEDS ORDERED: HOME MED LIST COMPLETE! XX SCH (08:50)
[2024-10-30] MEDS: ACETAMINOPHEN 325 MG TAB PO PRN (11:28)
[2024-10-30] MEDS: DOCUSATE SODIUM 100 MG CAPSULE PO SCH (11:28)
[2024-10-30 14:56] LABS: PH BODY FLUID 7.596 UNITS (NOT ESTABLISHED); SOURCE, BODY FLUID pH PLEURAL
[2024-10-30] MEDS ORDERED: FLUTICASONE PROPIONATE 0.05% NASAL SPRAY 16 GM NARES PRN (16:00)
[2024-10-30] MEDS ORDERED: VANICREAM MOISTURIZING SKIN CREAM 113GM TUBE TOP PRN (16:00)
[2024-10-30] MEDS: **hydrALAZINE HCL** 25 MG TAB PO PRN (16:26)
[2024-10-30] MEDS: METOPROLOL TART 25 MG TABLET PO SCH (20:21)
[2024-10-30] MEDS: LATANOPROST 0.005% OPHTH SOLN 2.5 ML OU SCH (20:21)
[2024-10-31 04:36] VITALS: BP_SYST 158; BP_DIAS 5; BP_DIAS 65; TEMP 97; O2SAT 96
[2024-10-31 05:37] LABS: PLATELET COUNT, AUTOMATED 108 10^3/uL (150-450)
[2024-10-31 06:04] LABS: ALT/SGPT 12.0 U/L (7.0-40); AST/SGOT 32.0 U/L (<34); CALCIUM LEVEL 8.4 MG/DL (8.3-10.6); CARBON DIOXIDE LEVEL 28.0 MMOL/L (20-31); CHLORIDE LEVEL 107.0 MMOL/L (98-107); CREATININE FOR GFR 1.66 MG/DL (0.55-1.30); GLOMERULAR FILTRATION RATE 30.4 (>32); MAGNESIUM LEVEL 1.9 MG/DL (1.8-2.4); POTASSIUM SERUM 5.1 MMOL/L (3.5-5.1); SODIUM LEVEL 144.0 MMOL/L (136-145)
[2024-10-31 08:02] LABS: LDH LACTATE DEHYDROGENASE 316.0 U/L (120-246)
[2024-10-31 08:17] VITALS: BP 131/76; TEMP 96.8; O2SAT 97
[2024-10-31] MEDS: LIDOCAINE 5% PATCH TOP SCH (08:22)
[2024-10-31] MEDS: OMEPRAZOLE 20MG CAP PO SCH (08:23)
[2024-10-31] MEDS: ATORVASTATIN 20 MG TAB PO SCH (08:23)
[2024-10-31] MEDS: CETIRIZINE 10 MG TAB PO SCH (08:23)
[2024-10-31] MEDS: PRENATAL VITAMINS CHEWABLE TABLET PO SCH (08:23)
[2024-10-31] MEDS: amLODIPine 5 MG TAB PO SCH (08:23)
[2024-10-31] MEDS: TOLTERODINE TARTRATE 2 MG LA CAP PO SCH (08:23)
[2024-10-31 12:14] VITALS: BP 135/79; TEMP 98.6; O2SAT 98
[2024-10-31 16:00] VITALS: BP 138/68; TEMP 97.6; O2SAT 97
[2024-10-31] MEDS: SODIUM CHLORIDE NASAL 0.65% SPRAY BTL (OCEAN) SCH (16:37)
[2024-10-31 17:09] LABS: KETONE, URINE AUTO RFX NEGATIVE (NEGATIVE); MUCUS, URINE RFX SMALL (NEGATIVE); NITRITE, URINE AUTO RFX NEGATIVE (NEGATIVE); RBC, URINE AUTO RFX 0 /HPF (0-3); SQUAM EPITHELIAL CELL UR AURFX 3 /HPF (0-6)
[2024-10-31 17:29] LABS: AMPHETAMINES LEVEL URINE NEGATIVE (NEGATIVE); BARBITURATES URINE NEGATIVE (NEGATIVE); BENZODIAZEPINES URINE NEGATIVE (NEGATIVE); CANNABINOIDS URINE NEGATIVE (NEGATIVE); COCAINE METABOLITE URINE NEGATIVE (NEGATIVE); METHADONE URINE NEGATIVE (NEGATIVE); OPIATES URINE NEGATIVE (NEGATIVE); PHENCYCLIDINE URINE NEGATIVE (NEGATIVE)
[2024-10-31 17:43] LABS: LEUKOCYTE ESTERASE UR AUTO RFX 2+ (NEGATIVE); WBC, URINE AUTO RFX 132 /HPF (0-3)
[2024-10-31 20:16] VITALS: BP 153/82; TEMP 97; O2SAT 97
[2024-10-31] MEDS: cefTRIAXone SOD 1 GM in DEXTROSE 5% (D5W) ADV/MINI-BAG 50 ML IV SCH (20:22)
[2024-11-01] VITALS (9 sets, daily range): BP systolic 105–185; BP diastolic 58–98; TEMP 97–98; O2SAT 92–98
[2024-11-01 06:39] LABS: CALCIUM LEVEL 8.1 MG/DL (8.3-10.6); CARBON DIOXIDE LEVEL 20.0 MMOL/L (20-31); CHLORIDE LEVEL 110.0 MMOL/L (98-107); CREATININE FOR GFR 1.85 MG/DL (0.55-1.30); GLOMERULAR FILTRATION RATE 26.7 (>32); MAGNESIUM LEVEL 2.0 MG/DL (1.8-2.4); POTASSIUM SERUM 5.2 MMOL/L (3.5-5.1); SODIUM LEVEL 143.0 MMOL/L (136-145)
[2024-11-01] MEDS: NS (Normal Saline) 0.9% 1,000 ML IV SCH (12:58)
[2024-11-01 18:23] LABS: CALCIUM LEVEL 8.4 MG/DL (8.3-10.6); CARBON DIOXIDE LEVEL 23.0 MMOL/L (20-31); CHLORIDE LEVEL 110.0 MMOL/L (98-107); CREATININE FOR GFR 1.91 MG/DL (0.55-1.30); GLOMERULAR FILTRATION RATE 25.7 (>32); POTASSIUM SERUM 5.5 MMOL/L (3.5-5.1); SODIUM LEVEL 144.0 MMOL/L (136-145)
[2024-11-01] MEDS: HEPARIN SOD 5000 UNITS/ML 1 ML VIAL/SYRINGE SQ SCH (20:33)
[2024-11-02] VITALS (15 sets, daily range): BP systolic 146–204; BP diastolic 78–108; TEMP 97–98.3; O2SAT 90–98
[2024-11-02 08:03] LABS: CALCIUM LEVEL 8.3 MG/DL (8.3-10.6); CARBON DIOXIDE LEVEL 22.0 MMOL/L (20-31); CHLORIDE LEVEL 112.0 MMOL/L (98-107); CREATININE FOR GFR 1.91 MG/DL (0.55-1.30); GLOMERULAR FILTRATION RATE 25.7 (>32); MAGNESIUM LEVEL 2.0 MG/DL (1.8-2.4); POTASSIUM SERUM 5.2 MMOL/L (3.5-5.1); SODIUM LEVEL 146.0 MMOL/L (136-145)
[2024-11-02] MEDS ORDERED: hydrALAZINE 20 MG/ML 1 ML VIAL IV PRN (08:15)
[2024-11-02] MEDS ORDERED: DEXTROSE 50% 50 ML SYRINGE IV STA (08:16)
[2024-11-02] MEDS ORDERED: HumuLIN R (REGULAR) INSULIN (NovoLIN R) **100 U/ML** PER UNIT IV STA (08:25)
[2024-11-02] MEDS: ALBUTEROL SULFATE 2.5 MG/0.5 ML INH CONCENTRATE NEB SOLN NEB ONE (08:49)
[2024-11-02] MEDS ORDERED: CEPACOL LOZENGE PO PRN (09:25)
[2024-11-02] MEDS: SOD POLYSTYRENE SULFONATE SUSP 15GM 60ML UD PO ONE (10:13)
[2024-11-02] MEDS: amLODIPine 5 MG TAB PO ONE (10:13)
[2024-11-02] MEDS: SENNOSIDES/DOCUSATE SODIUM 8.6 MG/50MG TAB PO SCH (10:14)
[2024-11-02] MEDS: **hydrALAZINE** 10 MG TAB PO SCH (12:07)
[2024-11-02 23:10] LABS: CALCIUM LEVEL 8.1 MG/DL (8.3-10.6); CARBON DIOXIDE LEVEL 26.0 MMOL/L (20-31); CHLORIDE LEVEL 112.0 MMOL/L (98-107); CREATININE FOR GFR 2.07 MG/DL (0.55-1.30); GLOMERULAR FILTRATION RATE 23.4 (>32); POTASSIUM SERUM 4.6 MMOL/L (3.5-5.1); SODIUM LEVEL 149.0 MMOL/L (136-145)
[2024-11-03 04:20] VITALS: BP 178/87; TEMP 97.8; O2SAT 91
[2024-11-03 07:51] VITALS: BP 113/64; TEMP 97.7; O2SAT 94
[2024-11-03] MEDS: D5W 1,000 ML IV SCH (09:31)
[2024-11-03 09:33] LABS: CALCIUM LEVEL 8.6 MG/DL (8.3-10.6); CARBON DIOXIDE LEVEL 22.0 MMOL/L (20-31); CHLORIDE LEVEL 111.0 MMOL/L (98-107); CREATININE FOR GFR 2.0 MG/DL (0.55-1.30); GLOMERULAR FILTRATION RATE 24.3 (>32); MAGNESIUM LEVEL 2.0 MG/DL (1.8-2.4); POTASSIUM SERUM 4.7 MMOL/L (3.5-5.1); SODIUM LEVEL 148.0 MMOL/L (136-145)
[2024-11-03] MEDS: amLODIPine 10 MG TAB PO SCH (09:33)
[2024-11-03 14:19] LABS: CALCIUM LEVEL 8.3 MG/DL (8.3-10.6); CARBON DIOXIDE LEVEL 24.0 MMOL/L (20-31); CHLORIDE LEVEL 109.0 MMOL/L (98-107); CREATININE FOR GFR 2.03 MG/DL (0.55-1.30); GLOMERULAR FILTRATION RATE 23.9 (>32); POTASSIUM SERUM 4.6 MMOL/L (3.5-5.1); SODIUM LEVEL 145.0 MMOL/L (136-145)
[2024-11-03 16:13] VITALS: BP 149/78; TEMP 97.3; O2SAT 91
[2024-11-03 18:21] VITALS: BP 115/70; TEMP 97.5; O2SAT 96
[2024-11-03 19:57] VITALS: BP 150/74; TEMP 97.2; O2SAT 96
[2024-11-04] VITALS (7 sets, daily range): BP systolic 114–149; BP diastolic 54–82; TEMP 97–98.5; O2SAT 92–98
[2024-11-04 09:46] LABS: CALCIUM LEVEL 8.5 MG/DL (8.3-10.6); CARBON DIOXIDE LEVEL 22.0 MMOL/L (20-31); CHLORIDE LEVEL 110.0 MMOL/L (98-107); CREATININE FOR GFR 2.02 MG/DL (0.55-1.30); GLOMERULAR FILTRATION RATE 24.0 (>32); MAGNESIUM LEVEL 1.9 MG/DL (1.8-2.4); POTASSIUM SERUM 4.5 MMOL/L (3.5-5.1); SODIUM LEVEL 145.0 MMOL/L (136-145)
[2024-11-04] MEDS: cefTRIAXone SOD 1 GM in DEXTROSE 5% (D5W) ADV/MINI-BAG 50 ML IV ONE (10:07)
[2024-11-04] MEDS: FUROSEMIDE 40 MG/4 ML VIAL IV ONE (19:38)
[2024-11-05] VITALS (8 sets, daily range): BP systolic 110–159; BP diastolic 60–94; TEMP 97.2–97.9; O2SAT 92–97
[2024-11-05 08:12] LABS: PLATELET COUNT, AUTOMATED 111 10^3/uL (150-450)
[2024-11-05] MEDS: FUROSEMIDE 40 MG/4 ML VIAL IV SCH (08:15)
[2024-11-05 08:24] LABS: CALCIUM LEVEL 8.5 MG/DL (8.3-10.6); CARBON DIOXIDE LEVEL 26.0 MMOL/L (20-31); CHLORIDE LEVEL 109.0 MMOL/L (98-107); CREATININE FOR GFR 2.21 MG/DL (0.55-1.30); GLOMERULAR FILTRATION RATE 21.6 (>32); MAGNESIUM LEVEL 1.9 MG/DL (1.8-2.4); POTASSIUM SERUM 4.4 MMOL/L (3.5-5.1); SODIUM LEVEL 148.0 MMOL/L (136-145)
[2024-11-05] MEDS ORDERED: ALBUTEROL SULFATE 2.5 MG/0.5 ML INH CONCENTRATE NEB SOLN NEB PRN (15:30)
[2024-11-05] MEDS: ALBUTEROL SULFATE 2.5 MG/0.5 ML INH CONCENTRATE NEB SOLN NEB SCH (15:49)
[2024-11-06] VITALS (10 sets, daily range): BP systolic 72–150; BP diastolic 36–88; TEMP 97.7–99.3; O2SAT 90–98
[2024-11-06 06:39] LABS: PLATELET COUNT, AUTOMATED 115 10^3/uL (150-450)
[2024-11-06 07:04] LABS: CALCIUM LEVEL 8.5 MG/DL (8.3-10.6); CARBON DIOXIDE LEVEL 26.0 MMOL/L (20-31); CHLORIDE LEVEL 110.0 MMOL/L (98-107); CREATININE FOR GFR 2.27 MG/DL (0.55-1.30); GLOMERULAR FILTRATION RATE 20.9 (>32); MAGNESIUM LEVEL 2.0 MG/DL (1.8-2.4); POTASSIUM SERUM 4.2 MMOL/L (3.5-5.1); SODIUM LEVEL 147.0 MMOL/L (136-145)
[2024-11-06] MEDS: NS (Normal Saline) 0.9% 1,000 ML IV ONE ×2 (10:10→18:22)
[2024-11-06] MEDS: NS (Normal Saline) 0.9% 1,000 ML IV SCH (12:40)
[2024-11-06 14:16] LABS: CK-MB VALUE MASS 5.5 NG/ML (<3.6)
[2024-11-06 14:26] LABS: CPK CREATINE PHOSPHOKINASE 47.0 U/L (34-145); MB/CK RELATIVE INDEX 11.7 (< OR =4)
[2024-11-06 17:52] LABS: KETONE, URINE AUTO RFX NEGATIVE (NEGATIVE); MUCUS, URINE RFX SMALL (NEGATIVE); NITRITE, URINE AUTO RFX NEGATIVE (NEGATIVE); RBC, URINE AUTO RFX 0 /HPF (0-3); SQUAM EPITHELIAL CELL UR AURFX 1 /HPF (0-6); WBC, URINE AUTO RFX 2 /HPF (0-3)
[2024-11-06 17:59] LABS: LEUKOCYTE ESTERASE UR AUTO RFX 1+ (NEGATIVE)
[2024-11-07 00:16] VITALS: BP 118/84; TEMP 98; O2SAT 95
[2024-11-07 04:40] VITALS: BP 122/90; TEMP 97.8; O2SAT 96
[2024-11-07 06:26] LABS: PLATELET COUNT, AUTOMATED 120 10^3/uL (150-450)
[2024-11-07 06:41] LABS: ALT/SGPT 11.0 U/L (7.0-40); AST/SGOT 30.0 U/L (<34); CALCIUM LEVEL 8.4 MG/DL (8.3-10.6); CARBON DIOXIDE LEVEL 19.0 MMOL/L (20-31); CHLORIDE LEVEL 112.0 MMOL/L (98-107); CREATININE FOR GFR 2.3 MG/DL (0.55-1.30); GLOMERULAR FILTRATION RATE 20.6 (>32); MAGNESIUM LEVEL 1.8 MG/DL (1.8-2.4); POTASSIUM SERUM 4.8 MMOL/L (3.5-5.1); SODIUM LEVEL 146.0 MMOL/L (136-145)
[2024-11-07 07:37] VITALS: BP 152/62; TEMP 97.4; O2SAT 94
[2024-11-07] MEDS: METOPROLOL TART 25 MG TABLET PO SCH (09:58)
[2024-11-07] MEDS ORDERED: E-Z-PAQUE 96% w/w SUSP 176 GM BTL As Ordered ONE (11:17)
[2024-11-07] MEDS ORDERED: LIQUID POLIBAR PLUS 105% w/v 750 ML BTL As Ordered ONE (11:18)
[2024-11-07] MEDS ORDERED: BARIUM SULFATE 700 MG TABLET As Ordered ONE (11:18)
[2024-11-07] MEDS ORDERED: VARIBAR NECTAR 40% w/v 240ML SUSP BTL As Ordered ONE (11:19)
[2024-11-07] MEDS ORDERED: VARIBAR PUDDING 40% w/v 230ML TUBE As Ordered ONE (11:19)
[2024-11-07 11:32] VITALS: BP 117/74; TEMP 97.5; O2SAT 94
[2024-11-07] MEDS ORDERED: SODIUM BICARBONATE 50 MEQ in NS 0.45% 1,000 ML IV SCH (11:45)
[2024-11-07] MEDS: SODIUM BICARBONATE 50 MEQ in NS 0.45% 1,000 ML IV SCH (13:18)
[2024-11-07 16:03] VITALS: BP 124/62; TEMP 97; O2SAT 95
[2024-11-07 21:01] VITALS: BP 148/80; TEMP 97.9; O2SAT 93; O2SAT 94
[2024-11-08] VITALS (8 sets, daily range): BP systolic 111–162; BP diastolic 56–82; TEMP 97.3–97.7; O2SAT 96–98
[2024-11-08] MEDS: predniSONE 20 MG TAB PO SCH (10:06)
[2024-11-08] MEDS: FUROSEMIDE 100 MG/10 ML VIAL IV ONE (10:50)
[2024-11-08 11:47] LABS: PLATELET COUNT, AUTOMATED 87 10^3/uL (150-450)
[2024-11-08 12:09] LABS: ALT/SGPT 12.0 U/L (7.0-40); AST/SGOT 30.0 U/L (<34); CALCIUM LEVEL 8.5 MG/DL (8.3-10.6); CARBON DIOXIDE LEVEL 19.0 MMOL/L (20-31); CHLORIDE LEVEL 111.0 MMOL/L (98-107); CREATININE FOR GFR 2.5 MG/DL (0.55-1.30); GLOMERULAR FILTRATION RATE 18.6 (>32); POTASSIUM SERUM 4.5 MMOL/L (3.5-5.1); SODIUM LEVEL 145.0 MMOL/L (136-145)
[2024-11-09] VITALS (9 sets, daily range): BP systolic 101–164; BP diastolic 56–95; TEMP 97.1–98.4; O2SAT 93–99
[2024-11-09 08:22] LABS: PLATELET COUNT, AUTOMATED 91 10^3/uL (150-450)
[2024-11-09 08:38] LABS: ALT/SGPT 14.0 U/L (7.0-40); AST/SGOT 38.0 U/L (<34); CALCIUM LEVEL 8.6 MG/DL (8.3-10.6); CARBON DIOXIDE LEVEL 18.0 MMOL/L (20-31); CHLORIDE LEVEL 111.0 MMOL/L (98-107); CREATININE FOR GFR 2.7 MG/DL (0.55-1.30); GLOMERULAR FILTRATION RATE 17.0 (>32); POTASSIUM SERUM 4.8 MMOL/L (3.5-5.1); SODIUM LEVEL 146.0 MMOL/L (136-145)
[2024-11-09] MEDS: FUROSEMIDE 100 MG/10 ML VIAL IV ONE (13:18)
[2024-11-10] MEDS: DEXTROSE 50% 50 ML SYRINGE IV STA (01:00)
[2024-11-10] MEDS ORDERED: GLUCOSE 4 GM CHEW PO PRN (01:00)
[2024-11-10] MEDS ORDERED: GLUCAGON INJ 1 MG VIAL SC PRN (01:00)
[2024-11-10 04:38] VITALS: BP 90/51; TEMP 97.4; O2SAT 95
[2024-11-10 04:56] VITALS: BP_SYST 128
[2024-11-10 06:07] LABS: PLATELET COUNT, AUTOMATED 109 10^3/uL (150-450)
[2024-11-10] MEDS: DEXTROSE 50% 50 ML SYRINGE IV PRN (06:22)
[2024-11-10 06:37] LABS: ALT/SGPT 14.0 U/L (7.0-40); AST/SGOT 37.0 U/L (<34); CALCIUM LEVEL 9.1 MG/DL (8.3-10.6); CARBON DIOXIDE LEVEL 19.0 MMOL/L (20-31); CHLORIDE LEVEL 110.0 MMOL/L (98-107); CREATININE FOR GFR 3.07 MG/DL (0.55-1.30); GLOMERULAR FILTRATION RATE 14.6 (>32); POTASSIUM SERUM 4.9 MMOL/L (3.5-5.1); SODIUM LEVEL 147.0 MMOL/L (136-145)
[2024-11-10 07:50] VITALS: BP_SYST 146
[2024-11-10 08:01] VITALS: BP 134/78; TEMP 97.3; O2SAT 97
[2024-11-10] MEDS: BISACODYL 10 MG SUPP PR PRN (09:57)
[2024-11-10] MEDS: D10W 1,000 ML IV SCH (11:08)
[2024-11-10] MEDS ORDERED: ONDANSETRON 4MG ORAL DISINTEGRATING TAB PO PRN (11:15)
[2024-11-10] MEDS ORDERED: ATROPINE SULFATE 1% OPHTH SOLN 2 ML BTL SL PRN (11:15)
[2024-11-10] MEDS ORDERED: ONDANSETRON 4MG 2ML VIAL IV PRN (11:15)
[2024-11-10] MEDS: MORPHINE 10 MG/0.5 ML ORAL CONCENTRATE SOLUTION U/D SL PRN (21:51)
[2024-11-11] MEDS: SCOPOLAMINE 1MG TRANSDERMAL PATCH TOP PRN (09:37)
[2024-11-12] MEDS: LORazepam 1 MG TAB PO PRN (08:43)
[2024-11-12] MEDS: MORPHINE 10 MG/0.5 ML ORAL CONCENTRATE SOLUTION U/D SL PRN (10:58)
[2024-11-12] MEDS: MORPHINE 10 MG/0.5 ML ORAL CONCENTRATE SOLUTION U/D SL SCH (18:25)
== END 2024-11-12 20:37 | disposition expired | DRG 689 ==
LOC: M ED 19:47 → M ED INP 10-30 04:08 → M PCU 10-30 05:48 → M MSPAV 11-05 15:29 → M PCU 11-06 20:49 → M MS5PR 11-12 02:02
PROVIDERS: ADMIT Student in an Organized Health Care Education/Training Program; ATTEND Internal Medicine
PROC: 0W993ZZ Drainage of Right Pleural Cavity, Percutaneous Approach (ICD-10-PCS; 2024-10-30)
PROC: B246ZZZ Ultrasonography of Right and Left Heart (ICD-10-PCS; principal; 2024-10-30 13:30)
DX: N39.0 Urinary tract infection, site not specified (principal); G93.41 Metabolic encephalopathy; I50.33 Acute on chronic diastolic (congestive) heart failure; E43 Unspecified severe protein-calorie malnutrition; G92.8 Other toxic encephalopathy; E46 Unspecified protein-calorie malnutrition; I48.19 Other persistent atrial fibrillation; M48.56XA Collapsed vertebra, not elsewhere classified, lumbar region, initial encounter for fracture; J98.11 Atelectasis; E87.0 Hyperosmolality and hypernatremia; N17.9 Acute kidney failure, unspecified; Z68.1 Body mass index [BMI] 19.9 or less, adult; J90 Pleural effusion, not elsewhere classified; E87.20 Acidosis, unspecified; E87.1 Hypo-osmolality and hyponatremia; I13.0 Hypertensive heart and chronic kidney disease with heart failure and stage 1 through stage 4 chronic kidney disease, or unspecified chronic kidney disease; I16.0 Hypertensive urgency; R41.82 Altered mental status, unspecified; E87.5 Hyperkalemia; E78.5 Hyperlipidemia, unspecified; I25.10 Atherosclerotic heart disease of native coronary artery without angina pectoris; I35.0 Nonrheumatic aortic (valve) stenosis; K21.9 Gastro-esophageal reflux disease without esophagitis; M10.9 Gout, unspecified; F03.90 Unspecified dementia, unspecified severity, without behavioral disturbance, psychotic disturbance, mood disturbance, and anxiety; G89.29 Other chronic pain; M15.9 Polyosteoarthritis, unspecified; Z51.5 Encounter for palliative care; N18.32 Chronic kidney disease, stage 3b; Z66 Do not resuscitate; R57.1 Hypovolemic shock; R29.6 Repeated falls; B96.1 Klebsiella pneumoniae [K. pneumoniae] as the cause of diseases classified elsewhere; R57.0 Cardiogenic shock; R13.10 Dysphagia, unspecified; I27.20 Pulmonary hypertension, unspecified; D69.6 Thrombocytopenia, unspecified; I73.9 Peripheral vascular disease, unspecified; S01.01XA Laceration without foreign body of scalp, initial encounter; M54.9 Dorsalgia, unspecified; I95.9 Hypotension, unspecified; R62.7 Adult failure to thrive; E86.0 Dehydration; I36.0 Nonrheumatic tricuspid (valve) stenosis; Z95.3 Presence of xenogenic heart valve; Z79.82 Long term (current) use of aspirin; Z95.1 Presence of aortocoronary bypass graft; Z79.899 Other long term (current) drug therapy; W19.XXXA Unspecified fall, initial encounter; Y92.009 Unspecified place in unspecified non-institutional (private) residence as the place of occurrence of the external cause; Y93.9 Activity, unspecified; Y99.8 Other external cause status